=== PATIENT | male | born 1945 | race Caucasian/White ===

== ENCOUNTER 2016-10-02 07:26 | Outpatient (CLI) | payer MEDICARE, MEDICAID | END 2016-10-02 07:27 | disposition home or self-care (01) | DX: E11.9 Type 2 diabetes mellitus without complications (principal) ==

== ENCOUNTER 2018-01-15 11:18 | Outpatient (CLI) | payer MEDICARE, MEDICAID ==
[2018-01-15 18:49] LABS: BASOPHILS # (AUTO) 0.1 10^3/uL (0.0-0.1); BASOPHILS % (AUTO) 1.6 %; EOSINOPHILS # (AUTO) 0.4 10^3/uL (0.0-0.7); EOSINOPHILS % (AUTO) 5.9 %; LYMPHOCYTES # (AUTO) 2.3 10^3/uL (1.5-3.5); LYMPHOCYTES % (AUTO) 32.2 %; MEAN CORPUSCULAR HEMOGLOBIN 31.9 pg (27.0-31.0); MEAN CORPUSCULAR HGB CONC 33.9 g/dL (32.0-36.0); MEAN PLATELET VOLUME 8.5 fL (7.4-11.4); MONOCYTES # (AUTO) 0.7 10^3/uL (0.0-1.0); MONOCYTES % (AUTO) 9.9 %; NEUTROPHILS # (AUTO) 3.6 10^3/uL (1.5-6.6); NEUTROPHILS % (AUTO) 50.4 %; PLT - PLATELET COUNT 271 10^3/uL (130-450); RED BLOOD COUNT 4.71 10^6/uL (4.70-6.10); RED CELL DISTRIBUTION WIDTH 13.6 % (12.0-15.0); WHITE BLOOD COUNT 7.1 x10^3/uL (4.8-10.8)
[2018-01-15 19:25] LABS: ALBUMIN 3.9 g/dL (3.2-5.5); ALKALINE PHOSPHATASE 53 IU/L (42-121); ALT ALANINE AMINOTRANSFERASE 41 IU/L (10-60); AST ASPARTATE AMINOTRANSFERASE 30 IU/L (10-42); BILIRUBIN,TOTAL 0.7 mg/dL (0.2-1.0); BUN - BLOOD UREA NITROGEN 14 mg/dL (6-20); CALCIUM 8.9 mg/dL (8.5-10.3); CARBON DIOXIDE - CO2 23 mmol/L (21-32); CHLORIDE 105 mmol/L (101-111); CHOL/HDL RATIO 4.1 (<5.0); CHOLESTEROL 167 mg/dL; CREATININE 0.9 mg/dL (0.6-1.2); GFR - MDRD 83 (>89); GLUCOSE 139 mg/dL (70-100); HDL CHOLESTEROL 41 mg/dL; LDL CHOLESTEROL,CALCULATED 75 mg/dL; LDL/HDL RATIO 1.8 (<3.6); SODIUM 136 mmol/L (135-145); TOTAL PROTEIN 7.7 g/dL (6.7-8.2); VLDL CHOLESTEROL 51 mg/dL
[2018-01-15 19:40] LABS: HB2 TOTAL 16.2 g/dL; HEMOGLOBIN A1C 1.03 g/dL
== END 2018-01-15 11:19 | disposition home or self-care (01) ==
LOC: LAB.WCP 11:18
PROVIDERS: ATTEND Family Medicine
DX: E11.9 Type 2 diabetes mellitus without complications (principal)
CPT/HCPCS: 36415; 80053; 80061; 82043; 83036; 83721; 84443; 85025

== ENCOUNTER 2018-09-10 13:34 | Outpatient (CLI) | payer MEDICARE, MEDICAID ==
[2018-09-10 18:52] LABS: BASOPHILS # (AUTO) 0.1 10^3/uL (0.0-0.1); BASOPHILS % (AUTO) 1.8 %; EOSINOPHILS # (AUTO) 0.3 10^3/uL (0.0-0.7); EOSINOPHILS % (AUTO) 4.5 %; LYMPHOCYTES # (AUTO) 2.2 10^3/uL (1.5-3.5); LYMPHOCYTES % (AUTO) 37.7 %; MEAN CORPUSCULAR HEMOGLOBIN 31.6 pg (27.0-31.0); MEAN CORPUSCULAR HGB CONC 33.4 g/dL (32.0-36.0); MEAN CORPUSCULAR VOLUME 94.6 fL (80.0-94.0); MEAN PLATELET VOLUME 8.6 fL (7.4-11.4); MONOCYTES # (AUTO) 0.5 10^3/uL (0.0-1.0); MONOCYTES % (AUTO) 9.1 %; NEUTROPHILS # (AUTO) 2.8 10^3/uL (1.5-6.6); NEUTROPHILS % (AUTO) 46.9 %; PLT - PLATELET COUNT 242 10^3/uL (130-450); RED BLOOD COUNT 4.44 10^6/uL (4.70-6.10); WHITE BLOOD COUNT 5.9 x10^3/uL (4.8-10.8)
[2018-09-10 19:18] LABS: ALBUMIN 4.3 g/dL (3.2-5.5); ALBUMIN/GLOBULIN RATIO 1.1 (1.0-2.2); ALKALINE PHOSPHATASE 57 IU/L (42-121); ALT ALANINE AMINOTRANSFERASE 87 IU/L (10-60); AST ASPARTATE AMINOTRANSFERASE 54 IU/L (10-42); BILIRUBIN,TOTAL 0.7 mg/dL (0.2-1.0); BUN - BLOOD UREA NITROGEN 19 mg/dL (6-20); CHOL/HDL RATIO 4.4 (<5.0); CHOLESTEROL 182 mg/dL; CREATININE 1.1 mg/dL (0.6-1.2); GFR - MDRD 65 (>89); HDL CHOLESTEROL 41 mg/dL; LDL CHOLESTEROL,CALCULATED 122 mg/dL; TOTAL PROTEIN 8.1 g/dL (6.7-8.2); VLDL CHOLESTEROL 19 mg/dL
[2018-09-10 19:27] LABS: CALCIUM 9.1 mg/dL (8.5-10.3); CARBON DIOXIDE - CO2 23 mmol/L (21-32); CHLORIDE 104 mmol/L (101-111); GLUCOSE 135 mg/dL (70-100); SODIUM 136 mmol/L (135-145)
[2018-09-10 19:55] LABS: HB2 TOTAL 15.4 g/dL; HEMOGLOBIN A1C 1.21 g/dL; HEMOGLOBIN A1C % 9.3 % (4.6-6.2)
== END 2018-09-10 13:35 | disposition home or self-care (01) ==
LOC: LAB.WCP 13:34
PROVIDERS: ATTEND Family Medicine
DX: E11.9 Type 2 diabetes mellitus without complications (principal); E78.5 Hyperlipidemia, unspecified; I10 Essential (primary) hypertension
CPT/HCPCS: 36415; 80053; 80061; 83036; 83721; 85025

== ENCOUNTER 2019-09-09 10:46 | Outpatient (CLI) | payer OTHER, MEDICARE | END 2019-09-09 10:47 | disposition critical access hospital (66) | LOC: EMS 10:46 | PROVIDERS: ATTEND Surgery | DX: R07.81 Pleurodynia (principal); V43.52XA Car driver injured in collision with other type car in traffic accident, initial encounter; Y92.413 State road as the place of occurrence of the external cause | CPT/HCPCS: A0425; A0429 ==

== ENCOUNTER 2019-09-09 11:15 | Emergency (ER) | payer OTHER, MEDICARE ==
[2019-09-09] MEDS ORDERED: HYDROcod/ACETAM 5/325 MG TABLET PO STA (11:24)
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
[2019-09-09 13:08] VITALS: BP 150/85
== END 2019-09-09 13:12 | disposition home or self-care (01) ==
LOC: EDUNIT# → ED 11:15
DX: S20.211A Contusion of right front wall of thorax, initial encounter (principal); S13.9XXA Sprain of joints and ligaments of unspecified parts of neck, initial encounter; V49.49XA Driver injured in collision with other motor vehicles in traffic accident, initial encounter
CPT/HCPCS: 70450; 71250; 72125; 99283; 99284; A9270

== ENCOUNTER 2019-10-13 08:45 | Outpatient (CLI) | payer OTHER, MEDICARE ==
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
== END 2019-10-13 23:59 | disposition home or self-care (01) ==
LOC: DI.WCP 08:45
PROVIDERS: ATTEND Family Medicine
DX: M19.012 Primary osteoarthritis, left shoulder (principal)

== ENCOUNTER 2020-06-05 08:00 | Outpatient (CLI) | payer MEDICARE, OTHER ==
[2020-06-05 13:21] LABS: BASOPHILS # (AUTO) 0.1 10^3/uL (0.0-0.1); EOSINOPHILS # (AUTO) 0.4 10^3/uL (0.0-0.7); EOSINOPHILS % (AUTO) 6.6 %; HGB - HEMOGLOBIN 14.9 g/dL (14.0-18.0); LYMPHOCYTES # (AUTO) 2.8 10^3/uL (1.5-3.5); LYMPHOCYTES % (AUTO) 43.8 %; MEAN CORPUSCULAR HEMOGLOBIN 31.2 pg (27.0-31.0); MEAN CORPUSCULAR HGB CONC 33.3 g/dL (32.0-36.0); MEAN CORPUSCULAR VOLUME 93.5 fL (80.0-94.0); MEAN PLATELET VOLUME 10.4 fL (7.4-11.4); MONOCYTES # (AUTO) 0.5 10^3/uL (0.0-1.0); MONOCYTES % (AUTO) 7.3 %; NEUTROPHILS # (AUTO) 2.6 10^3/uL (1.5-6.6); PLT - PLATELET COUNT 246 10^3/uL (130-450); RED BLOOD COUNT 4.78 10^6/uL (4.70-6.10); RED CELL DISTRIBUTION WIDTH 12.3 % (12.0-15.0); WHITE BLOOD COUNT 6.4 x10^3/uL (4.8-10.8)
[2020-06-05 13:43] LABS: CREATININE,URINE 161.1 mg/dL; MICROALBUM/CREATININE RATIO,UR 6.2 ug/mg (<30.0)
[2020-06-05 14:19] LABS: ALBUMIN/GLOBULIN RATIO 1.1 (1.0-2.2); ALKALINE PHOSPHATASE 48 IU/L (42-121); ALT ALANINE AMINOTRANSFERASE 31 IU/L (10-60); AST ASPARTATE AMINOTRANSFERASE 20 IU/L (10-42); BILIRUBIN,TOTAL 0.8 mg/dL (0.2-1.0); BUN - BLOOD UREA NITROGEN 22 mg/dL (6-20); CALCIUM 9.1 mg/dL (8.5-10.3); CARBON DIOXIDE - CO2 24 mmol/L (21-32); CHLORIDE 104 mmol/L (101-111); CHOL/HDL RATIO 4.9 (<5.0); CHOLESTEROL 205 mg/dL; CREATININE 1.4 mg/dL (0.6-1.2); GLUCOSE 155 mg/dL (70-100); HDL CHOLESTEROL 42 mg/dL; LDL CHOLESTEROL,CALCULATED 140 mg/dL; LDL/HDL RATIO 3.3 (<3.6); TOTAL PROTEIN 7.8 g/dL (6.7-8.2); VLDL CHOLESTEROL 23 mg/dL
== END 2020-06-05 23:59 | disposition home or self-care (01) ==
LOC: LAB.WCP 08:00
PROVIDERS: ATTEND Family Medicine
DX: E11.9 Type 2 diabetes mellitus without complications (principal)
CPT/HCPCS: 36415; 80053; 80061; 82043; 82570; 83036; 83721; 85025

== ENCOUNTER 2020-06-26 07:00 | Outpatient (CLI) | payer MEDICARE, OTHER ==
[2020-06-26 10:52] LABS: INR 0.9 (0.8-1.2); PT - PROTHROMBIN TIME 10.6 secs (9.9-12.6)
[2020-06-26 11:21] LABS: ALBUMIN 4.3 g/dL (3.2-5.5); ALBUMIN/GLOBULIN RATIO 1.2 (1.0-2.2); BILIRUBIN,TOTAL 0.8 mg/dL (0.2-1.0); CALCIUM 9.5 mg/dL (8.5-10.3); CREATININE 1.4 mg/dL (0.6-1.2)
== END 2020-06-26 23:59 | disposition home or self-care (01) ==
LOC: LAB 07:00
PROVIDERS: ATTEND Surgery
DX: K76.9 Liver disease, unspecified (principal)
CPT/HCPCS: 36415; 80053; 85610

== ENCOUNTER 2020-07-18 07:35 | Day surgery (SDC) | payer MEDICARE, MEDICAID ==
[2020-07-18] MEDS ORDERED: LACTATED RINGERS 1,000 ML IV ONE ×2 (07:51→10:55)
--- NOTE | 2020-07-18 08:49 | ANESTHESIA ---
Pre-Anesthesia VS, & Labs - Diagnosis screening Colonoscopy - Procedure Colonoscopy Vital Signs: Temp Pulse Resp BP Pulse Ox 37.0 C 102 H 18 163/83 H 96 07/18/20 07:51 07/18/20 07:51 07/18/20 07:51 07/18/20 07:51 07/18/20 07:51 Height: 5 ft 6 in Weight (kg): 68 kg Body Mass Index: 24.2 BMI Classification: Healthy weight - Lab Results Current Lab Results: Laboratory Tests 07/18/20 08:22: POC Whole Bld Glucose 180 H Lab results reviewed: Yes Home Medications and Allergies Home Medications: Ambulatory Orders Amlodipine Besylate [Norvasc] 10 mg PO DAILY 07/14/20 Hydralazine HCl 150 mg PO DAILY 07/14/20 Metoprolol Tartrate [Lopressor] 50 mg PO BID 07/14/20 Spironolactone [Aldactone] 25 mg PO DAILY 07/14/20 Telmisartan [Micardis] 80 mg PO DAILY 07/14/20 glipiZIDE [Glipizide] 20 mg PO DAILY 07/14/20 metFORMIN [Glucophage] 500 mg PO BIDWM 07/14/20 Amlodipine Besylate [Norvasc] 10 mg PO DAILY 07/14/20 Hydralazine HCl 150 mg PO DAILY 07/14/20 Metoprolol Tartrate [Lopressor] 50 mg PO BID 07/14/20 Spironolactone [Aldactone] 25 mg PO DAILY 07/14/20 Telmisartan [Micardis] 80 mg PO DAILY 07/14/20 glipiZIDE [Glipizide] 20 mg PO DAILY 07/14/20 metFORMIN [Glucophage] 500 mg PO BIDWM 07/14/20 Allergies/Adverse Reactions: Allergies Allergy/AdvReac Type Severity Reaction Status Date / Time hydrochlorothiazide Allergy Unknown Verified 09/10/19 08:04 lisinopril Allergy Unknown Verified 09/10/19 08:04 lovastatin Allergy Unknown Verified 09/10/19 08:04 Anes History & Medical History - Anesthetic History Family history of Anesthesia Complications: Denies Family history of Malignant Hyperthermia: Denies - Medical History Cardiovascular: reports: Hypertension Pulmonary: reports: None Gastrointestinal: reports: Colon polyps, Other Urinary: reports: Benign prostate hypertrophy Neuro: reports: None Musculoskeletal: reports: None Endocrine/Autoimmune: reports: Type 2 diabetes Skin: reports: None Smoking Status: Never smoker Psychosocial: reports: No issues indicated - Surgical History General: reports: Liver surgery, Colonoscopy Eyes Ears Nose Throat (EENT): reports: Cataracts, Other Urologic: reports: Bladder surgery Results - EKG Results EKG Comparison: Unchanged from prior EKG Exam General: Alert, Oriented x3, Cooperative, No acute distress Dental: WNL Mouth Openin Fingerbreadth Neck Mobility: Normal Mallampati classification: II Thyromental Distance: 4-6 cm Respiratory: Lungs clear, Normal breath sounds Cardiovascular: Regular rate, No murmurs Plan Anesthesia Type: General Consent for Procedure(s) Verified and Reviewed: Yes Code Status: Attempt Resuscitation ASA classification: 2-Mild systemic disease Is this case an emergency?: No
[2020-07-18] MEDS ORDERED: LIDOCAINE-MPF 2% 5 ML VIAL ONE (10:25)
[2020-07-18] MEDS ORDERED: PROPOFOL 200 MG/20 ML VIAL IVP ONE ×2 (10:25→10:40)
[2020-07-18 10:57] VITALS: BP 134/79
--- NOTE | 2020-07-18 12:17 | ANESTHESIA POST OP EVALUATION ---
Anesthesia Post Eval - Post Anesthesia Eval Vitals: Last Vital Signs Temp 36.4 C L 07/18/20 10:56 Pulse 85 07/18/20 10:56 Resp 16 07/18/20 10:56 BP 134/79 H 07/18/20 10:56 Pulse Ox 99 07/18/20 10:56 CV Function Including HR & BP: positive: Stable Pain Control: positive: Satisfactory Nausea & Vomiting: positive: Negative Mental Status: positive: Patient Participates Respiratory Status: Airway Patent Hydration Status: Satisfactory Anesthesia Complications: positive: None
== END 2020-07-18 07:36 | disposition home or self-care (01) ==
LOC: SDS 07:35
PROVIDERS: ATTEND Surgery
DX: Z12.11 Encounter for screening for malignant neoplasm of colon (principal); K57.30 Diverticulosis of large intestine without perforation or abscess without bleeding; K64.8 Other hemorrhoids; I10 Essential (primary) hypertension; E11.9 Type 2 diabetes mellitus without complications; N40.0 Benign prostatic hyperplasia without lower urinary tract symptoms; Z86.010 Personal history of colon polyps; Z87.891 Personal history of nicotine dependence; Z79.84 Long term (current) use of oral hypoglycemic drugs; Z86.59 Personal history of other mental and behavioral disorders
CPT/HCPCS: G0105; J7120

== ENCOUNTER 2020-09-11 08:35 | Outpatient (CLI) | payer MEDICARE, MEDICAID ==
[2020-09-11 13:48] LABS: BASOPHILS # (AUTO) 0.1 10^3/uL (0.0-0.1); BASOPHILS % (AUTO) 1.4 %; EOSINOPHILS # (AUTO) 0.6 10^3/uL (0.0-0.7); EOSINOPHILS % (AUTO) 8.8 %; HCT - HEMATOCRIT 42.8 % (42.0-52.0); HGB - HEMOGLOBIN 14.3 g/dL (14.0-18.0); LYMPHOCYTES # (AUTO) 2.2 10^3/uL (1.5-3.5); LYMPHOCYTES % (AUTO) 33.3 %; MEAN CORPUSCULAR HEMOGLOBIN 31.8 pg (27.0-31.0); MEAN CORPUSCULAR HGB CONC 33.4 g/dL (32.0-36.0); MEAN CORPUSCULAR VOLUME 95.3 fL (80.0-94.0); MEAN PLATELET VOLUME 10.1 fL (7.4-11.4); MONOCYTES # (AUTO) 0.5 10^3/uL (0.0-1.0); MONOCYTES % (AUTO) 8.2 %; NEUTROPHILS # (AUTO) 3.1 10^3/uL (1.5-6.6); NEUTROPHILS % (AUTO) 48.1 %; PLT - PLATELET COUNT 225 10^3/uL (130-450); RED BLOOD COUNT 4.49 10^6/uL (4.70-6.10); RED CELL DISTRIBUTION WIDTH 12.5 % (12.0-15.0); WHITE BLOOD COUNT 6.5 x10^3/uL (4.8-10.8)
[2020-09-11 13:49] LABS: BILIRUBIN,URINE NEGATIVE (NEGATIVE); GLUCOSE, URINE (UA) 500 mg/dL (NEGATIVE); KETONES,URINE (UA) NEGATIVE (NEGATIVE); LEUKOCYTE ESTERASE, URINE NEGATIVE (NEGATIVE); NITRITE,URINE NEGATIVE (NEGATIVE); OCCULT BLOOD,URINE NEGATIVE (NEGATIVE); PROTEIN,URINE NEGATIVE (NEGATIVE); UROBILINOGEN,URINE 0.2 (NORMAL) E.U./dL (NORMAL)
[2020-09-11 14:06] LABS: BACTERIA,URINE None Seen /HPF (None Seen); CLARITY,URINE CLEAR (CLEAR); RBC,URINE None Seen /HPF (0-5); SQUAMOUS EPITHELIAL CELL,UR NONE SEEN (<= Few); WBC,URINE 0-3 /HPF (0-3)
[2020-09-11 14:14] LABS: ALBUMIN 4.3 g/dL (3.2-5.5); ALBUMIN/GLOBULIN RATIO 1.2 (1.0-2.2); ALKALINE PHOSPHATASE 43 IU/L (42-121); ALT ALANINE AMINOTRANSFERASE 28 IU/L (10-60); AST ASPARTATE AMINOTRANSFERASE 19 IU/L (10-42); BILIRUBIN,TOTAL 0.7 mg/dL (0.2-1.0); BUN - BLOOD UREA NITROGEN 18 mg/dL (6-20); CALCIUM 9.5 mg/dL (8.5-10.3); CARBON DIOXIDE - CO2 26 mmol/L (21-32); CHLORIDE 105 mmol/L (101-111); CHOL/HDL RATIO 4.4 (<5.0); CHOLESTEROL 205 mg/dL; CREATININE 1.1 mg/dL (0.6-1.2); GFR - MDRD 65 (>89); GLUCOSE 185 mg/dL (70-100); HDL CHOLESTEROL 47 mg/dL; LDL CHOLESTEROL,CALCULATED 131 mg/dL; LDL/HDL RATIO 2.8 (<3.6); POTASSIUM 4.1 mmol/L (3.5-5.0); SODIUM 139 mmol/L (135-145); TOTAL PROTEIN 7.8 g/dL (6.7-8.2); TRIGLYCERIDES 134 mg/dL; VLDL CHOLESTEROL 27 mg/dL
[2020-09-11 14:33] LABS: ESTIMATED AVERAGE GLUCOSE 157 mg/dL (70-100); HEMOGLOBIN A1c% 7.1 % (4.27-6.07)
== END 2020-09-11 23:59 | disposition home or self-care (01) ==
LOC: LAB.WCP 08:35
PROVIDERS: ATTEND Family Medicine
DX: E11.22 Type 2 diabetes mellitus with diabetic chronic kidney disease (principal); N18.30 Chronic kidney disease, stage 3 unspecified
CPT/HCPCS: 36415; 80053; 80061; 81001; 83036; 83721; 85025

== ENCOUNTER 2020-11-09 11:36 | Outpatient (CLI) | payer MEDICARE, MEDICAID ==
--- NOTE | 2020-11-09 17:28 | XRAY Report ---
PROCEDURE: Cervical Spine 2 View INDICATIONS: NECK AND BACK PAIN TECHNIQUE: 3 view(s) of the cervical spine were acquired. COMPARISON: None. FINDINGS: Bones: No fractures or dislocations to the T1 level. The lateral masses of C1 appear intact on the odontoid view. No suspicious bony lesions. Moderate cervical spondylosis centered at C4-C6 with anterior osteophytes and posterior lateral uncov ertebral joint hypertrophy. There is an element of cervical facet arthropathy as well. Soft tissues: No prevertebral soft tissue swelling. IMPRESSION: Cervical spondylitic change. Reviewed by: Asad Miller MD on 11/09/2020 4:27 PM MATTY Approved by: Asad Miller MD on 11/09/2020 4:27 PM MATTY Station ID: [id number]
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
== END 2020-11-09 23:59 | disposition home or self-care (01) ==
LOC: DI.N 11:36
PROVIDERS: ATTEND Family Medicine
DX: M47.812 Spondylosis without myelopathy or radiculopathy, cervical region (principal); M54.2 Cervicalgia; M54.9 Dorsalgia, unspecified

== ENCOUNTER 2021-03-13 10:07 | Outpatient (CLI) | payer MEDICARE, MEDICAID ==
[2021-03-13 11:31] LABS: BASOPHILS # (AUTO) 0.1 10^3/uL (0.0-0.1); BASOPHILS % (AUTO) 1.5 %; EOSINOPHILS # (AUTO) 0.4 10^3/uL (0.0-0.7); EOSINOPHILS % (AUTO) 6.7 %; HCT - HEMATOCRIT 43.1 % (42.0-52.0); HGB - HEMOGLOBIN 14.5 g/dL (14.0-18.0); LYMPHOCYTES # (AUTO) 1.6 10^3/uL (1.5-3.5); LYMPHOCYTES % (AUTO) 26.6 %; MEAN CORPUSCULAR HEMOGLOBIN 31.7 pg (27.0-31.0); MEAN CORPUSCULAR HGB CONC 33.6 g/dL (32.0-36.0); MEAN CORPUSCULAR VOLUME 94.3 fL (80.0-94.0); MEAN PLATELET VOLUME 10.2 fL (7.4-11.4); MONOCYTES # (AUTO) 0.5 10^3/uL (0.0-1.0); MONOCYTES % (AUTO) 8.1 %; NEUTROPHILS # (AUTO) 3.5 10^3/uL (1.5-6.6); NEUTROPHILS % (AUTO) 56.9 %; PLT - PLATELET COUNT 218 10^3/uL (130-450); RED BLOOD COUNT 4.57 10^6/uL (4.70-6.10); RED CELL DISTRIBUTION WIDTH 12.2 % (12.0-15.0); WHITE BLOOD COUNT 6.1 x10^3/uL (4.8-10.8)
[2021-03-13 12:00] LABS: ESTIMATED AVERAGE GLUCOSE 186 mg/dL (70-100); HEMOGLOBIN A1c% 8.1 % (4.27-6.07)
[2021-03-13 12:04] LABS: ALBUMIN/GLOBULIN RATIO 1.1 (1.0-2.2); ALKALINE PHOSPHATASE 58 IU/L (42-121); ALT ALANINE AMINOTRANSFERASE 33 IU/L (10-60); AST ASPARTATE AMINOTRANSFERASE 19 IU/L (10-42); BILIRUBIN,TOTAL 0.9 mg/dL (0.2-1.0); BUN - BLOOD UREA NITROGEN 21 mg/dL (6-20); CALCIUM 9.4 mg/dL (8.5-10.3); CARBON DIOXIDE - CO2 27 mmol/L (21-32); CHLORIDE 104 mmol/L (101-111); CHOL/HDL RATIO 5.2 (<5.0); CHOLESTEROL 209 mg/dL; CREATININE 1.2 mg/dL (0.6-1.2); GFR - MDRD 59 (>89); GLUCOSE 216 mg/dL (70-100); HDL CHOLESTEROL 40 mg/dL; LDL CHOLESTEROL,CALCULATED 131 mg/dL; LDL/HDL RATIO 3.3 (<3.6); POTASSIUM 3.8 mmol/L (3.5-5.0); SODIUM 139 mmol/L (135-145); TOTAL PROTEIN 7.7 g/dL (6.7-8.2); TRIGLYCERIDES 192 mg/dL; VLDL CHOLESTEROL 38 mg/dL
== END 2021-03-13 23:59 | disposition home or self-care (01) ==
LOC: LAB.WCP 10:07
PROVIDERS: ATTEND Family Medicine
DX: E11.9 Type 2 diabetes mellitus without complications (principal)
CPT/HCPCS: 36415; 80053; 80061; 83036; 83721; 85025

== ENCOUNTER 2021-09-05 09:35 | Outpatient (CLI) | payer MEDICARE, MEDICAID ==
[2021-09-05 12:12] LABS: CREATININE,URINE 113.6 mg/dL; MICROALBUM/CREATININE RATIO,UR 80.1 ug/mg (<30.0); MICROALBUMIN,URINE 9.1 mg/dL (0-300.0)
[2021-09-05 12:19] LABS: BASOPHILS # (AUTO) 0.1 10^3/uL (0.0-0.1); BASOPHILS % (AUTO) 1.6 %; EOSINOPHILS # (AUTO) 0.2 10^3/uL (0.0-0.7); EOSINOPHILS % (AUTO) 4.7 %; HCT - HEMATOCRIT 43.3 % (42.0-52.0); HGB - HEMOGLOBIN 14.7 g/dL (14.0-18.0); LYMPHOCYTES # (AUTO) 1.4 10^3/uL (1.5-3.5); LYMPHOCYTES % (AUTO) 27.8 %; MEAN CORPUSCULAR HEMOGLOBIN 31.4 pg (27.0-31.0); MEAN CORPUSCULAR HGB CONC 33.9 g/dL (32.0-36.0); MEAN CORPUSCULAR VOLUME 92.5 fL (80.0-94.0); MEAN PLATELET VOLUME 10.5 fL (7.4-11.4); MONOCYTES # (AUTO) 0.5 10^3/uL (0.0-1.0); MONOCYTES % (AUTO) 9.5 %; NEUTROPHILS # (AUTO) 2.9 10^3/uL (1.5-6.6); NEUTROPHILS % (AUTO) 56.2 %; PLT - PLATELET COUNT 209 10^3/uL (130-450); RED BLOOD COUNT 4.68 10^6/uL (4.70-6.10); RED CELL DISTRIBUTION WIDTH 12.2 % (12.0-15.0); WHITE BLOOD COUNT 5.1 x10^3/uL (4.8-10.8)
[2021-09-05 12:35] LABS: ALBUMIN/GLOBULIN RATIO 1.1 (1.0-2.2); ALKALINE PHOSPHATASE 54 IU/L (42-121); ALT ALANINE AMINOTRANSFERASE 37 IU/L (10-60); AST ASPARTATE AMINOTRANSFERASE 20 IU/L (10-42); BILIRUBIN,TOTAL 0.8 mg/dL (0.2-1.0); BUN - BLOOD UREA NITROGEN 19 mg/dL (6-20); CALCIUM 9.3 mg/dL (8.5-10.3); CARBON DIOXIDE - CO2 27 mmol/L (21-32); CHLORIDE 99 mmol/L (101-111); CHOLESTEROL 193 mg/dL; CREATININE 1.3 mg/dL (0.6-1.2); GFR - MDRD 54 (>89); GLUCOSE 251 mg/dL (70-100); HDL CHOLESTEROL 48 mg/dL; LDL CHOLESTEROL,CALCULATED 115 mg/dL; LDL/HDL RATIO 2.4 (<3.6); POTASSIUM 3.8 mmol/L (3.5-5.0); SODIUM 136 mmol/L (135-145); TOTAL PROTEIN 7.8 g/dL (6.7-8.2); TRIGLYCERIDES 151 mg/dL; VLDL CHOLESTEROL 30 mg/dL
== END 2021-09-05 09:36 | disposition home or self-care (01) ==
LOC: LAB.N 09:35
PROVIDERS: ATTEND Physician Assistant
DX: E11.9 Type 2 diabetes mellitus without complications (principal)
CPT/HCPCS: 36415; 80053; 80061; 81599; 82043; 82570; 83036; 83721; 85025

== ENCOUNTER 2022-04-26 13:18 | Outpatient (CLI) | payer MEDICARE, MEDICAID ==
[2022-04-26 18:07] LABS: BILIRUBIN,URINE NEGATIVE (NEGATIVE); CLARITY,URINE CLEAR (CLEAR); GLUCOSE, URINE (UA) >=1000 mg/dL (NEGATIVE); KETONES,URINE (UA) NEGATIVE (NEGATIVE); LEUKOCYTE ESTERASE, URINE NEGATIVE (NEGATIVE); NITRITE,URINE NEGATIVE (NEGATIVE); OCCULT BLOOD,URINE NEGATIVE (NEGATIVE); PROTEIN,URINE NEGATIVE (NEGATIVE); UROBILINOGEN,URINE 0.2 (NORMAL) E.U./dL (NORMAL)
[2022-04-26 18:27] LABS: CREATININE,URINE 70.4 mg/dL; MICROALBUM/CREATININE RATIO,UR 8.5 ug/mg (<30.0); MICROALBUMIN,URINE 0.6 mg/dL (0-300.0)
[2022-04-26 18:39] LABS: ALBUMIN 4.1 g/dL (3.2-5.5); CALCIUM 8.8 mg/dL (8.5-10.3); CREATININE 1.3 mg/dL (0.6-1.2); PHOSPHORUS 2.5 mg/dL (2.5-4.6)
[2022-04-26 20:48] LABS: ESTIMATED AVERAGE GLUCOSE 148 mg/dL (70-100); HEMOGLOBIN A1c% 6.8 % (4.27-6.07)
== END 2022-04-26 13:19 | disposition home or self-care (01) ==
LOC: LAB.N 13:18
PROVIDERS: ATTEND Physician Assistant
DX: I12.9 Hypertensive chronic kidney disease with stage 1 through stage 4 chronic kidney disease, or unspecified chronic kidney disease (principal); E11.22 Type 2 diabetes mellitus with diabetic chronic kidney disease; N18.31 Chronic kidney disease, stage 3a
CPT/HCPCS: 36415; 80069; 81001; 81003; 82043; 82088; 82570; 83036; 84244; 87086

== ENCOUNTER 2022-05-14 07:24 | Outpatient (CLI) | payer MEDICARE, MEDICAID | END 2022-05-14 07:25 | disposition home or self-care (01) | LOC: LAB.N 07:24 | PROVIDERS: ATTEND Internal Medicine Nephrology | DX: I10 Essential (primary) hypertension (principal) | CPT/HCPCS: 84244 ==

== ENCOUNTER 2022-08-13 15:25 | Outpatient (CLI) | payer MEDICARE, MEDICAID ==
--- NOTE | 2022-08-13 16:35 | Ultrasound Report ---
PROCEDURE: Retroperitoneal INDICATIONS: CHRONIC KIDNEY DISEASE STAGE 3A TECHNIQUE: Real-time scanning was performed of the retroperitoneal organs, with image documentation. COMPARISON: None. FINDINGS: Kidneys: . Right kidney measures 12.2 cm long; left kidney measures 8.8 cm long. Right renal corti steve thickness is 1.9 cm; left renal cortical thickness is 1.8 cm. No solid masses, hydronephrosis, o r nephrolithiasis. Bladder: Pre-void bladder volume is 118 mL. Post-void residual is 36 mL. Pre-void images demonstra te no intraluminal masses or stones. On pre-void images, bilateral ureteral jets are noted with colo r Doppler interrogation. (Of note, ureteral jets may not be detectable in up to 25% of cases due to insufficient differences in specific gravity between ureteral and bladder urine). Miscellaneous: No free abdominal fluid. IMPRESSION: Small postvoid residual. Asymmetric left renal atrophy. Reviewed by: Kourtney Cooley MD on 08/13/2022 4:33 PM PDT Approved by: Kourtney Cooley MD on 08/13/2022 4:33 PM PDT Station ID: [id number]
== END 2022-08-13 15:26 | disposition home or self-care (01) ==
LOC: DI 15:25
PROVIDERS: ATTEND Physician Assistant
DX: N18.31 Chronic kidney disease, stage 3a (principal); N26.1 Atrophy of kidney (terminal)

== ENCOUNTER 2023-01-09 09:05 | Outpatient (CLI) | payer OTHER, MEDICAID, MEDICARE | END 2023-01-09 23:59 | disposition critical access hospital (66) | LOC: EMS 09:05 | DX: S80.812A Abrasion, left lower leg, initial encounter (principal); V89.0XXA Person injured in unspecified motor-vehicle accident, nontraffic, initial encounter; Y93.89 Activity, other specified; Y92.89 Other specified places as the place of occurrence of the external cause; R07.9 Chest pain, unspecified | CPT/HCPCS: A0425; A0429 ==

== ENCOUNTER 2023-01-09 09:13 | Emergency (ER) | payer OTHER, MEDICARE, MEDICAID ==
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
[2023-01-09 10:00] VITALS: BP 134/59; O2SAT 97
== END 2023-01-09 10:02 | disposition home or self-care (01) ==
LOC: EDUNIT# → ED 09:13
DX: S20.211A Contusion of right front wall of thorax, initial encounter (principal); S80.12XA Contusion of left lower leg, initial encounter; V89.2XXA Person injured in unspecified motor-vehicle accident, traffic, initial encounter; Y92.410 Unspecified street and highway as the place of occurrence of the external cause; I10 Essential (primary) hypertension; E11.9 Type 2 diabetes mellitus without complications; Z79.899 Other long term (current) drug therapy; Z79.84 Long term (current) use of oral hypoglycemic drugs
CPT/HCPCS: 99281; 99283

== ENCOUNTER 2023-01-17 09:26 | Outpatient (CLI) | payer MEDICARE, MEDICAID, OTHER ==
[2023-01-17 13:05] LABS: ALBUMIN 4.1 g/dL (3.2-5.5); CREATININE 1.1 mg/dL (0.6-1.3); MAGNESIUM 2.1 mg/dL (1.7-2.3); PHOSPHORUS 2.9 mg/dL (2.5-5.0); POTASSIUM 4.1 mmol/L (3.5-4.5); URIC ACID 5.7 mg/dL (4.4-7.6)
[2023-01-17 13:19] LABS: CREATININE,URINE 82.1 mg/dL; MICROALBUM/CREATININE RATIO,UR 13.4 ug/mg (<30.0); MICROALBUMIN,URINE 1.1 mg/dL
== END 2023-01-17 09:27 | disposition home or self-care (01) ==
LOC: LAB.N 09:26
PROVIDERS: ATTEND Internal Medicine Nephrology
DX: N18.31 Chronic kidney disease, stage 3a (principal)
CPT/HCPCS: 36415; 80048; 82040; 82043; 82306; 82570; 83735; 83970; 84100; 84550

== ENCOUNTER 2023-02-03 07:10 | Outpatient (CLI) | payer MEDICARE, MEDICAID ==
[2023-02-03 12:34] LABS: BASOPHILS # (AUTO) 0.1 10^3/uL (0.0-0.1); BASOPHILS % (AUTO) 1.3 %; EOSINOPHILS # (AUTO) 0.4 10^3/uL (0.0-0.7); EOSINOPHILS % (AUTO) 6.2 %; HCT - HEMATOCRIT 43.5 % (42.0-52.0); HGB - HEMOGLOBIN 14.5 g/dL (14.0-18.0); LYMPHOCYTES # (AUTO) 2.5 10^3/uL (1.5-3.5); LYMPHOCYTES % (AUTO) 40.3 %; MEAN CORPUSCULAR HEMOGLOBIN 31.5 pg (27.0-31.0); MEAN CORPUSCULAR HGB CONC 33.3 g/dL (32.0-36.0); MEAN CORPUSCULAR VOLUME 94.6 fL (80.0-94.0); MEAN PLATELET VOLUME 10.3 fL (7.4-11.4); MONOCYTES # (AUTO) 0.6 10^3/uL (0.0-1.0); MONOCYTES % (AUTO) 9.2 %; NEUTROPHILS # (AUTO) 2.7 10^3/uL (1.5-6.6); NEUTROPHILS % (AUTO) 42.8 %; PLT - PLATELET COUNT 206 10^3/uL (130-450); RED CELL DISTRIBUTION WIDTH 12.6 % (12.0-15.0); WHITE BLOOD COUNT 6.3 x10^3/uL (4.8-10.8)
[2023-02-03 12:54] LABS: ALBUMIN 4.2 g/dL (3.2-5.5); ALBUMIN/GLOBULIN RATIO 1.2 (1.0-2.2); ALKALINE PHOSPHATASE 57 IU/L (42-121); ALT ALANINE AMINOTRANSFERASE 14 IU/L (10-60); AST ASPARTATE AMINOTRANSFERASE 12 IU/L (10-42); BILIRUBIN,TOTAL 0.7 mg/dL (0.2-1.0); BUN - BLOOD UREA NITROGEN 16 mg/dL (6-20); CALCIUM 9.3 mg/dL (8.5-10.3); CARBON DIOXIDE - CO2 27 mmol/L (21-32); CHLORIDE 108 mmol/L (101-111); CHOLESTEROL 169 mg/dL; CREATININE 1.2 mg/dL (0.6-1.3); GFR - MDRD 59 (>89); GLUCOSE 107 mg/dL (74-104); HDL CHOLESTEROL 42 mg/dL; LDL CHOLESTEROL,CALCULATED 96 mg/dL; LDL/HDL RATIO 2.3 (<3.6); POTASSIUM 3.6 mmol/L (3.5-4.5); SODIUM 142 mmol/L (135-145); TOTAL PROTEIN 7.6 g/dL (6.4-8.9); TRIGLYCERIDES 155 mg/dL (48-352); VLDL CHOLESTEROL 31 mg/dL
[2023-02-03 14:06] LABS: ESTIMATED AVERAGE GLUCOSE 128 mg/dL (70-100); HEMOGLOBIN A1c% 6.1 % (4.27-6.07)
== END 2023-02-03 07:11 | disposition home or self-care (01) ==
LOC: LAB.N 07:10
PROVIDERS: ATTEND Internal Medicine Nephrology
DX: I12.9 Hypertensive chronic kidney disease with stage 1 through stage 4 chronic kidney disease, or unspecified chronic kidney disease (principal); E11.22 Type 2 diabetes mellitus with diabetic chronic kidney disease; N18.31 Chronic kidney disease, stage 3a; E78.5 Hyperlipidemia, unspecified
CPT/HCPCS: 36415; 80053; 80061; 83036; 83721; 85025

== ENCOUNTER 2023-10-07 07:14 | Outpatient (CLI) | payer MEDICARE, MEDICAID ==
[2023-10-07 13:04] LABS: ESTIMATED AVERAGE GLUCOSE 143 mg/dL (70-100); HEMOGLOBIN A1c% 6.6 % (4.27-6.07)
[2023-10-07 13:14] LABS: CALCIUM 9.4 mg/dL (8.5-10.3); CREATININE 1.5 mg/dL (0.6-1.3)
== END 2023-10-07 07:15 | disposition home or self-care (01) ==
LOC: LAB.N 07:14
PROVIDERS: ATTEND Physician Assistant
DX: E11.9 Type 2 diabetes mellitus without complications (principal)
CPT/HCPCS: 36415; 80048; 83036

== ENCOUNTER 2023-10-07 07:17 | Outpatient (CLI) | payer MEDICARE, MEDICAID | END 2023-10-07 07:18 | disposition home or self-care (01) | LOC: DI.N 07:17 | PROVIDERS: ATTEND Physician Assistant | DX: Z53.9 Procedure and treatment not carried out, unspecified reason (principal) ==

== ENCOUNTER 2024-01-21 07:05 | Outpatient (CLI) | payer MEDICARE, MEDICAID | END 2024-01-21 07:06 | disposition home or self-care (01) | LOC: LAB.N 07:05 | PROVIDERS: ATTEND Internal Medicine Nephrology | DX: N18.31 Chronic kidney disease, stage 3a (principal) | CPT/HCPCS: 36415; 82040 ==

== ENCOUNTER 2025-03-12 19:18 | Inpatient (IN) ==
--- OUTSIDE RECORDS SUMMARY | 2025-03-12 19:46 | EXTERNAL MEDICAL SUMMARY RPT | Continuity of Care Document ---
Author Organization [facility] Address [address] [id number] Phone Problems date description facility 2024-12-13 07:21 Chronic kidney disease, stage 3 a [facility] 2024-12-13 12:52 Chronic kidney disease, stage 3 a [facility] 2024-12-14 00:04 Chronic kidney disease, stage 3 a [facility] 2024-12-15 14:32 Hydronephrosis with ureteral stricture, not elsewhere classified [facility] 2024-12-15 14:32 Chronic kidney disease, stage 3 a [facility] 2025-01-27 00:04 Type 2 diabetes mellitus with h yperglycemia [facility] 2025-01-27 00:04 Type 2 diabetes mellitus withou t complications [facility] 2025-01-28 13:19 Type 2 diabetes mellitus with h yperglycemia [facility] 2025-02-02 17:03 Type 2 diabetes mellitus withou t complications [facility] 2025-02-03 00:02 Nutritional anemia, unspecified [facility] 2025-02-03 00:02 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 [facility] 2025-02-03 00:02 Type 2 diabetes mellitus withou t complications [facility] 2025-02-03 00:02 Hyperlipidemia, unspecified [facility] 2025-02-03 00:02 Essential (primary) hypertensio n [facility] 2025-02-03 00:02 Chronic kidney disease, stage 2 (mild) [facility] 2025-02-03 00:02 Chronic kidney disease, stage 3 unspecified [facility] 2025-03-09 07:03 Hypokalemia [facility] 2025-03-10 00:04 Hypokalemia [facility] 2025-03-10 07:39 Chronic kidney disease, stage 3 a [facility] 2025-03-10 10:33 Hypokalemia [facility] Results/Labs test date facility value unit notes Result panel 1 CREATININE 2024-12-13 08:06 [facility] 1.4 mg/dl As of November 2022 testing method has changed, this may include reference ranges. CHLORIDE 2024-12-13 08:06 [facility] 101 mmol/l As of November 2022 testing method has changed, this may include reference ranges. SODIUM 2024-12-13 08:06 [facility] 139 mmol/l (missing) GLUCOSE 2024-12-13 08:06 [facility] 144 mg/dl As of November 2022 testing method has changed, this may include reference ranges. BUN - BLOOD UREA NITROGEN 2024-12-13 08:06 [facility] 26 mg/dl As of Nov testing method has changed, this may include reference ranges. POTASSIUM 2024-12-13 08:06 [facility] 3.3 mmol/l As of November 2022 testing method has changed, this may include reference ranges. CARBON DIOXIDE - CO2 2024-12-13 08:06 [facility] 30 mmol/l As of Nov testing method has changed, this may include reference ranges. ALBUMIN 2024-12-13 08:06 [facility] 4.3 g/dl As of November 2022 testing method has changed, this may include reference ranges. GFR - MDRD 2024-12-13 08:06 [facility] 49 (missin g) The IDMS-traceable MDRD Study Equation has been validated extensively in and populations between the ages of 18 and 70 with impaired kidney function (eGFR < 60 mL/min/1.73m2) and has shown good performance for patients with all common causes of kidney disease. Although this equation has not been validated for patients older than 70, an MDRD-derived eGFR may still be a useful tool for providers caring for patients older than 70. References: http://www.nkdep.nih .gov/lab-evaluation/ gfr/creatinine-stand ardization, last updated July 2011. ANION GAP 2024-12-13 08:06 [facility] 8.0 (missing ) (missing) CALCIUM 2024-12-13 08:06 [facility] 9.6 mg/dl As of November 2022 testing method has changed, this may include reference ranges. Result panel 2 MICROALBUMIN,URINE 2024-12-13 08:08 [facility] 0.7 mg/dl [place] [employer] Definition of Moderately increased urine albumin Spot collection Urine 24-h collection Timed collection (g/mg Volume (mg/24h) (g/min) creatinine) ======= Normal < 30 < 20 < 30 Moderately 30 - 299 20 - 199 30 - 299 increased Clinical >= 300 >= 200 >= 300 albuminuria Reference Intervals shown above were taken from the literature. As of November 2022 testing method has changed, this may include reference ranges. CREATININE,URINE 2024-12-13 08:08 [facility] 134.9 mg/dl As of November 2022 testing method has changed, this may include reference ranges. MICROALBUM/CREATININE RATIO,UR 2024-12-13 08:08 [facility] 5.2 ug/mg (missing) Result panel 3 NUCLEATED RED BLOOD CELLS AUTO 2025-01-26 07:10 [facility] 0.0 /100wbc (missing) NRBC ABSOLUTE COUNT (AUTO) 2025-01-26 07:10 [facility] 0.00 x10 3/ul (missing) BASOPHILS # (AUTO) 2025-01-26 07:10 [facility] 0.1 10 3/ul (missing) EOSINOPHILS # (AUTO) 2025-01-26 07:10 [facility] 0.3 10 3/ul (missing) MONOCYTES # (AUTO) 2025-01-26 07:10 [facility] 0.5 10 3/ul (missing) BILIRUBIN,TOTAL 2025-01-26 07:10 [facility] 0.6 mg/dl As of November 2022 testing method has changed, this may include reference ranges. ALBUMIN/GLOBULIN RATIO 2025-01-26 07:10 [facility] 1.2 (missing) (missing) CREATININE 2025-01-26 07:10 [facility] 1.3 mg/dl As of November 2022 testing method has changed, this may include reference ranges. MEAN PLATELET VOLUME 2025-01-26 07:10 [facility] 10.8 fl (missing) CHLORIDE 2025-01-26 07:10 [facility] 102 mmol/l As of November 2022 testing method has changed, this may include reference ranges. RED CELL DISTRIBUTION WIDTH 2025-01-26 07:10 [facility] 12.3 % (missing) HGB - HEMOGLOBIN 2025-01-26 07:10 [facility] 13.7 g/dl (missing) TRIGLYCERIDES 2025-01-26 07:10 [facility] 131 mg/dl Unknown Triglyceride Risk Classification <150 mg/dL Normal 150-199 mg/dL Borderline High 200-499 mg/dL High >500 mg/dL Very High As of November 2022 testing method has changed, this may include reference ranges. SODIUM 2025-01-26 07:10 [facility] 139 mmol/l Unknown ESTIMATED AVERAGE GLUCOSE 2025-01-26 07:10 [facility] 151 mg/dl (missing) GLUCOSE 2025-01-26 07:10 [facility] 155 mg/dl As of November 2022 testing method has changed, this may include reference ranges. CHOLESTEROL 2025-01-26 07:10 [facility] 159 mg/dl Total Cholesterol Risk Classification Cholesterol Level Risk Classification <200 mg/dL Desirable 200-239 mg/dL Borderline High >240 mg/dL High As of November 2022 testing method has changed, this may include reference ranges. AST ASPARTATE AMINOTRANSFERASE 2025-01-26 07:10 [facility] 17 iu/l As of November 2022 testing method has changed, this may include reference ranges. LYMPHOCYTES # (AUTO) 2025-01-26 07:10 [facility] 2.1 10 3/ul (missing) LDL/HDL RATIO 2025-01-26 07:10 [facility] 2.2 (missing) (missing) ALT ALANINE AMINOTRANSFERASE 2025-01-26 07:10 [facility] 20 iu/l As of November 2022 testing method has changed, this may include reference ranges. PLT - PLATELET COUNT 2025-01-26 07:10 [facility] 210 10 3/ul (missing) BUN - BLOOD UREA NITROGEN 2025-01-26 07:10 [facility] 23 mg/dl As of November 2022 testing method has changed, this may include reference ranges. VLDL CHOLESTEROL 2025-01-26 07:10 [facility] 26 mg/dl (missing) NEUTROPHILS # (AUTO) 2025-01-26 07:10 [facility] 3.1 10 3/ul (missing) GLOBULIN 2025-01-26 07:10 [facility] 3.3 g/dl (missing) POTASSIUM 2025-01-26 07:10 [facility] 3.3 mmol/l As of November 2022 testing method has changed, this may include reference ranges. CHOL/HDL RATIO 2025-01-26 07:10 [facility] 3.9 (missing) NATIONAL CHOLESTEROL GUIDELINE [facility] ([facility]) guidelines for classificaton, testing and management of cholesterol levels in adults over 20 years of age. This new classification creates three categories of risk for coronary heart disease, regardless of age or sex, according to total amd LDL cholesterols levels: Based on total cholesterol level Desirable <200 mg/dl Borderline-high 200-239 mg/dl High >=240 mg/dl Based on cholesterol ratio CHD RISK CHOL/HDL RATIO --- MALE FEMALE 0.5 x Average 3.4 3.3 1.0 x Average 5.0 4.4 2.0 x Average 9.6 7.1 3.0 x Average 13.5 11.0 CARBON DIOXIDE - CO2 2025-01-26 07:10 [facility] 31 mmol/l As of November 2022 testing method has changed, this may include reference ranges. MEAN CORPUSCULAR HEMOGLOBIN 2025-01-26 07:10 [facility] 32.2 pg (missing) MEAN CORPUSCULAR HGB CONC 2025-01-26 07:10 [facility] 33.8 g/dl (missing) ALBUMIN 2025-01-26 07:10 [facility] 4.1 g/dl As of November 2022 testing method has changed, this may include reference ranges. RED BLOOD COUNT 2025-01-26 07:10 [facility] 4.25 10 6/ul (missing) HCT - HEMATOCRIT 2025-01-26 07:10 [facility] 40.5 % (missing) HDL CHOLESTEROL 2025-01-26 07:10 [facility] 41 mg/dl Coronary Heart Disease Risk Classification HDL Level Risk factor < 40 mg/dL major risk > 60 mg/dL negative risk As of November 2022 testing method has changed, this may include reference ranges. ALKALINE PHOSPHATASE 2025-01-26 07:10 [facility] 44 iu/l As of November 2022 testing method has changed, this may include reference ranges. GFR - MDRD 2025-01-26 07:10 [facility] 53 (missing) The IDMS-traceable MDRD Study Equation has been validated extensively in and populations between the ages of 18 and 70 with impaired kidney function (eGFR < 60 mL/min/1.73m2) and has shown good performance for patients with all common causes of kidney disease. Although this equation has not been validated for patients older than 70, an MDRD-derived eGFR may still be a useful tool for providers caring for patients older than 70. References: http://www.nkdep.ni h.gov/lab-evaluatio n/gfr/creatinine-st and ardization, last updated July 2011. ANION GAP 2025-01-26 07:10 [facility] 6.0 (missing) (missing) WHITE BLOOD COUNT 2025-01-26 07:10 [facility] 6.2 x10 3/ul (missing) HEMOGLOBIN A1c% 2025-01-26 07:10 [facility] 6.9 % The [place] Diabetes Association (ADA) has made the following recommendations: Monitoring HbA1c in Diabetic Patients: A1c (NGSP%) Goal <8 Less Stringent Goal <7 General Goal <6.5 More Stringent Goal Diagnosis of Diabetes: A1c (NGSP%) Goal >6.5 Diabetic 5.7-6.4 Pre-Diabetic <5.7 Non-Diabetic TOTAL PROTEIN 2025-01-26 07:10 [facility] 7.4 g/dl As of November 2022 testing method has changed, this may include reference ranges. CALCIUM 2025-01-26 07:10 [facility] 9.4 mg/dl As of November 2022 testing method has changed, this may include reference ranges. LDL CHOLESTEROL,CALCULATED 2025-01-26 07:10 [facility] 92 mg/dl LDLD REFERENCE RANGE AND CARDIOVASCULAR RISK: <130 mg/dL Desirable 130-159 mg/dL Borderline High Risk >160 mg/dL High Risk MEAN CORPUSCULAR VOLUME 2025-01-26 07:10 [facility] 95.3 fl (missing) Result panel 4 CREATININE 2025-03-09 07:27 [facility] 1.5 mg/dl As of November 2022 testing method has changed, this may include reference ranges. CHLORIDE 2025-03-09 07:27 [facility] 102 mmol/l As of November 2022 testing method has changed, this may include reference ranges. SODIUM 2025-03-09 07:27 [facility] 137 mmol/l (missing) GLUCOSE 2025-03-09 07:27 [facility] 139 mg/dl As of November 2022 testing method has changed, this may include reference ranges. BUN - BLOOD UREA NITROGEN 2025-03-09 07:27 [facility] 26 mg/dl As of Nov testing method has changed, this may include reference ranges. POTASSIUM 2025-03-09 07:27 [facility] 3.6 mmol/l As of November 2022 testing method has changed, this may include reference ranges. CARBON DIOXIDE - CO2 2025-03-09 07:27 [facility] 30 mmol/l As of Nov testing method has changed, this may include reference ranges. GFR - MDRD 2025-03-09 07:27 [facility] 45 (missin g) The IDMS-traceable MDRD Study Equation has been validated extensively in and populations between the ages of 18 and 70 with impaired kidney function (eGFR < 60 mL/min/1.73m2) and has shown good performance for patients with all common causes of kidney disease. Although this equation has not been validated for patients older than 70, an MDRD-derived eGFR may still be a useful tool for providers caring for patients older than 70. References: http://www.nkdep.nih .gov/lab-evaluation/ gfr/creatinine-stand ardization, last updated July 2011. ANION GAP 2025-03-09 07:27 [facility] 5.0 (missing ) (missing) CALCIUM 2025-03-09 07:27 [facility] 9.0 mg/dl As of November 2022 testing method has changed, this may include reference ranges. Social History date description facility
[2025-03-12 19:47] LABS: HCT - HEMATOCRIT 42.6 % (42.0-52.0); HGB - HEMOGLOBIN 14.2 g/dL (14.0-18.0); MEAN PLATELET VOLUME 9.6 fL (7.4-11.4); NRBC ABSOLUTE COUNT (AUTO) 0.00 x10^3/uL; NUCLEATED RED BLOOD CELLS AUTO 0.0 /100WBC; PLT - PLATELET COUNT 218 10^3/uL (130-450); RED CELL DISTRIBUTION WIDTH 12.2 % (12.0-15.0)
--- NOTE | 2025-03-12 19:47 | ED Physician Documentation ---
History of Present Illness Stated complaint Stated Complaint: ABD PX Chief complaint Chief Complaint: Abd Pain Additonal information Additional information: Patient is an 79-year-old male with history of diabetes, hypertension, presenting with sudden onset of diffuse abdominal pain that began today around 3:00pm. Patient is primarily [place] language speaking, though interview was assisted with help of his daughter. Patient was at his baseline state of health today when the symptoms began abruptly. Describes 9 out of 10 pain throughout his abdomen that is diffuse. He ate a normal diet of fruit today, states that he has had bowel movement since then that is normal, denies dark tarry stools, bloody stools. Denies any urination changes. There has been no fever, chills, nausea, vomiting. Denies any chest pain, chest pressure, chest heaviness. Den ies any indigestion. Endorses mild distention of the abdomen, and diffuse discomfort worse on the left side. Does have a history of remote liver surgery but they cannot tell me more specifically what was performed. Patient does not have a history of recurrent bowel obstruction or frequent abdominal surgery according to daughter. Denies previous history of colitis, diverticulitis. Review of Systems Status of ROS: See HPI Meds/Allgy Home Medications Ambulatory Orders Medication Instructions Recorded Confirmed blood sugar diagnostic (Accutrend 07/15/24 03/12/25 Glucose test strips) blood-glucose meter 07/15/24 03/12/25 amlodipine 10 mg tablet (Norvasc) 10 mg PO DAILY #90 t abs 02/02/25 03/12/25 carvedilol 25 mg tablet 25 mg PO BID #180 tabs 02/0203/12/25 chlorthalidone 25 mg tablet 12.5 mg (1/2 x 25 mg) PO Q DAY #45 02/02/25 03/12/25 tabs clonidine HCl 0.1 mg tablet 0.1 mg PO .qhs #90 tabs 03/12/25 glipizide 10 mg tablet 10 mg PO BID #90 tabs 03/12/25 hydralazine 100 mg tablet See Rx Instructions .Route 0 02/02/25 03/12/25 .COMPLEX #270 tabs metformin 500 mg tablet 500 mg PO BID #180 tabs 01/1703/12/25 prazosin 1 mg capsule 4 mg (4 x 1 mg) PO QPM #360 caps 02/02/25 03/12/25 telmisartan 80 mg tablet (Micardis) 80 mg PO DAILY #90 tabs 02/02/25 03/12/25 empagliflozin 10 mg tablet 10 mg PO DAILY 03/12/25 (Jardiance) furosemide 20 mg tablet 20 mg PO DAILY 03/12/2502/17 Allergies Allergies Allergy/AdvReac Type Severity Reaction Status Date / Time spironolactone Allergy Severe Unknown Verified 03/12/25 19:31 hydrochlorothiazide Allergy Unknown Verified 03/12/25 19:31 lisinopril Allergy Unknown Verified 03/12/25 19:31 lovastatin AdvReac Severe liver Verified 03/12/25 19:31 enzymes PFSH Active Problems All Active Problems Small bowel obstruction (Acute) Macrocytic anemia (Acute) Screening for malignant neoplasm (Acute) CKD stage 3 secondary to diabetes (Acute) Lower extremity edema (Acute) BPH (benign prostatic hyperplasia) (Acute) Allergic rhinitis (Acute) Hyperlipidemia (Acute) Diabetes mellitus (Acute) Dermatitis (Acute) Benign essential hypertension (Acute) GERD (gastroesophageal reflux disease) (Acute) Prostate cancer screening (Acute) Colon cancer screening (Acute) Liver disease (Acute) Medical History Medical History Chronic neck and back pain Degenerative joint disease of cervical spine Degenerative joint disease Family history of CVA brother and sister Social History Social History Smoking Status: Never smoker Second hand tobacco smoke exposure: No Do you dip or chew tobacco?: No Do you vape?: No Living arrangement: At home Living Condition: With family Support Person: Yes Level: Independent Do you feel safe in your home environment?: Yes History of physical, verbal, emotional, or financial abuse?: No ETOH Use: None Frequency: Occasional Substance Use: denies use Exam Exam Vital Signs: Vital Signs x48h Temp Pulse Resp BP Pulse Ox 03/12/25 21:27 77 16 146/69 H 95 03/12/25 20:00 72 18 152/77 H 97 03/12/25 19:21 36.2 C L 72 20 147/80 H 95 Constitutional normal general appearance Resting comfortably, no acute distress. Nontoxic, no diaphoresis, no pallor. HENMT normocephalic Eyes conjunctivae normal Respiratory breath sounds equal bilaterally, normal respiratory effort, clear to auscultation bilaterally and no wheezes Clear to auscultation bilaterally, no increased respiratory effort. Satting at 96% on room air. Cardiovascular Regular rate and rhythm, normal S1-S2. Radial pulses are 2+ and symmetric. Gastrointestinal Mild distention in abdomen diffusely. Tenderness to palpation throughout his abdomen, more severe tenderness to palpation specifically in the left upper and left lower quadrant. Bilateral CVA tenderness present. No guarding, no rigidity. No peritoneal signs. Rebound tenderness is present throughout abdomen. Extremities normal to inspection Neurology master ship II-XII intact and no fasciculations noted Psychiatry mental status grossly normal and oriented x3 Skin skin color normal Results Vitals Vitals: Vital Signs - 24 hr 03/12/25 19:21 03/12/25 19:56 03/12/25 20:00 Temperature 36.2 C L Temperature Source Tympanic Pulse Rate 72 72 Respiratory Rate 20 18 Blood Pressure 147/80 H 152/77 H O2 Saturation 95 97 O2 Source Room air Pain Intensity 9 7 03/12/25 20:26 03/12/25 21:27 03/12/25 21:27 Temperature Temperature Source Pulse Rate 77 Respiratory Rate 16 Blood Pressure 146/69 H O2 Saturation 95 O2 Source Room air Pain Intensity 0 3 0 Oxygen O2 Source Room air Labs Labs: Laboratory Tests 03/12/25 03/12/25 19:42 21:11 WBC 13.0 H RBC 4.55 L Hgb 14.2 Hct 42.6 MCV 93.6 MCH 31.2 H MCHC 33.3 RDW 12.2 Plt Count 218 MPV 9.6 Neut # (Auto) 9.5 H Lymph # (Auto) 2.2 Jay # (Auto) 0.8 Eos # (Auto) 0.4 Baso # (Auto) 0.1 Absolute Nucleated RBC 0.00 Nucleated RBC % 0.0 Sodium 137 Potassium 3.4 L Chloride 98 L Carbon Dioxide 30 Anion Gap 9.0 BUN 30 H Creatinine 1.8 H Estimated GFR (MDRD) 36 L Glucose 191 H Lactic Acid 1.1 Calcium 9.5 Total Bilirubin 0.6 AST 14 ALT 16 Alkaline Phosphatase 48 Total Protein 8.2 Albumin 4.4 Globulin 3.8 Albumin/Globulin Ratio 1.2 Lipase 41 Urine Color LIGHT YELLOW Urine Clarity CLEAR Urine pH 7.0 Ur Specific [place] 1.010 Urine Protein NEGATIVE Urine Glucose (UA) >=1000 H Urine Ketones NEGATIVE Urine Occult Blood NEGATIVE Urine Nitrite NEGATIVE Urine Bilirubin NEGATIVE Urine Urobilinogen 0.2 (NORMAL) Ur Leukocyte Esterase NEGATIVE Ur Microscopic Review NOT INDICATED Urine Culture Comments NOT INDICATED PD Medical Decision Making ED course ED course: Assessment: Patient is a 79-year-old male with history of hypertension, type 2 diabetes, presenting with sudden onset of abdominal pain today that began around 1500 hrs. Endorses diffuse abdominal pain that is difficult for him to localize, but states that there is some mild distention. States that he had a normal bowel movement earlier today. Denies urination changes. Denies fever, chills. Initially was not endorsing any nausea or vomiting, though throughout his time in ER did develop nausea with 2 episodes of vomiting. Rates his abdominal pain is 9 out of 10. DDx: Includes but is not limited to, small bowel obstruction, volvulus, ischemic bowel, colitis, diverticulitis, appendicitis, cholecystitis, etc. Workup: CBC with white count of 13.0. Stable hemoglobin. CMP with a potassium of 3.4, BUN 30, creatinine at 1.8 which is elevated from his baseline which appears to be about 1.3-1.4/5. Lipase normal. Lactic acid within normal limits. No transaminitis. No elevation of bilirubin. Urine studies with significant glucose but otherwise no evidence of infection. CT abdomen demonstrated a small bowel obstruction with a transition point identified in the left midabdomen near the jejunum. Treatment: 1 L IVF, Dilaudid 0.5 mg, Zofran 4 mg Discussion: I talked this patient's case over with on-call surgeon Dr. Jefferson, who recommended admission to the hospital, with likely Gastrografin study. Decision whether to medically manage or surgically manage this patient will be left to on-call surgeon. He will be admitted to surgeons team here at our hospital. I explained this to patient and his daughter who was there at bedside assisting with translation. They are agreeable with admission this time. His pain is currently well-controlled, and he has remained hemodynamically stable. During my shift patient transferred to the floor. Discharge Plan Discharge Patient Disposition: 66 [facility] DC/Xfer Condition: Stable Clinical Impression: Small bowel obstruction
[2025-03-12] MEDS: HYDROmorphone 0.5 MG/0.5 ML SYRINGE IVP STA (19:56)
[2025-03-12 20:05] LABS: ALT ALANINE AMINOTRANSFERASE 16.0 IU/L (10-60); AST ASPARTATE AMINOTRANSFERASE 14.0 IU/L (10-42); BUN - BLOOD UREA NITROGEN 30.0 mg/dL (6-20); CARBON DIOXIDE - CO2 30.0 mmol/L (21-32); CREATININE 1.8 mg/dL (0.6-1.3); GFR - MDRD 36.0 (>89)
[2025-03-12] MEDS: SODIUM CHLORIDE 0.9% 1,000 ML IV STA (20:19)
[2025-03-12 21:20] LABS: GLUCOSE, URINE (UA) >=1000 mg/dL (NEGATIVE); KETONES,URINE (UA) NEGATIVE (NEGATIVE); OCCULT BLOOD,URINE NEGATIVE (NEGATIVE)
--- NOTE | 2025-03-12 21:28 | CT Report ---
PROCEDURE: CT Abdomen/Pelvis W INDICATIONS: sudden onset severe abdominal pain, diffuse CONTRAST: 100 ML OMNI 300 TECHNIQUE: After the administration of intravenous contrast, a CT scan of the abdomen and pelvis was performed. Images were recorded and evaluated at appropriate window settings. Reformats: coronal and sagittal. For radiation dose reduction, the following was used: automated exposure control, adjustment of mA and/or kV according to patient size. COMPARISON: None. FINDINGS: Image quality: Diagnostic Lower chest: Lung bases are unremarkable. Coronary calcifications. Mild nonspecific distal esophageal wall thickening. Liver: Unremarkable Gallbladder and biliary system: Gallbladder appears packed with stones. No biliary ductal dilation Pancreas: No ductal dilation Spleen: Nonenlarged Adrenals: No discrete nodules Kidneys: No solid renal mass. No hydronephrosis. Moderate left renal atrophy, asymmetric to the right. Tiny nonobstructing calculus in the left upper pole Vessels and lymph nodes: The main portal vein appears patent. Mild to moderate aortoiliac atherosclerotic calcifications. There are no enlarged lymph nodes by size criteria Bowel and peritoneum: Mild to moderate gastric distention. Small bowel obstruction, with transition point in the left mid abdomen in the region of the jejunum Mild surrounding mesenteric edema. Mild wall thickening of the bowel loops distal to the obstruction point. Trace pelvic free fluid. Unremarkable CT appearance of the colon nondilated appendix Body wall: Small fat-containing inguinal hernias. Small fat-containing umbilical hernia. Pelvis: Bladder is unremarkable. Probable TURP changes. Heterogeneous prostate enhancement, nonspecific. Bones: Small sclerotic lesion in the left posterior iliac bone, indeterminate possibly bone island. Degenerative osseous findings. IMPRESSION: Small bowel obstruction, with transition point in the left mid abdomen in the region of the jejunum. Mild wall thickening of the bowel loops distal to the obstruction, possibly enteritis or reactive. Mild mesenteric edema and trace pelvic free fluid. Other findings above. Reviewed by: Mendoza Beebe MD on 03/12/2025 9:25 PM PDT Approved by: Mendoza Beebe MD on 03/12/2025 9:25 PM PDT Station ID: [id number]
[2025-03-12] MEDS: ONDANSETRON 4 MG/2 ML VIAL IVP STA (22:00)
[2025-03-12] MEDS ORDERED: hydrALAZINE INJ 20 MG/ML VIAL IVP PRN (22:29)
[2025-03-12] MEDS ORDERED: SODIUM CHLORIDE FLUSH 0.9% 10 ML SYRINGE IVP PRN (23:15)
[2025-03-12] MEDS: INSULIN REGULAR, HUMAN 300 UNIT/3 ML PEN SUBQ SCH (23:31)
[2025-03-12] MEDS: NS W/20 MEQ KCL 1,000 ML IV SCH (23:33)
--- NOTE | 2025-03-12 23:35 | CONSULTATION NOTE ---
Referring Provider Name of Referring Provider:: Dr. Jefferson Consult Date: 03/12/25 Chief Complaint Chief Complaint Chief Complaint: Abdominal pain History of Present Illness History of Present Illness HPI Comment/Other: 79 y old male with PMH HTN, DM type 2, Hyperlipidemia, BPH, GERD presneted to ER due to abdominal pain. CT abdomen/pelvis showed SBO. Pt was admitted by surgery. Hospitalist service was consulted for medical management for HTN and diabetes. Meds/Allgy Home Medications Ambulatory Orders Medication Instructions Recorded Confirmed blood sugar diagnostic (Accutrend 07/15/24 03/12/25 Glucose test strips) blood-glucose meter 07/15/24 03/12/25 amlodipine 10 mg tablet (Norvasc) 10 mg PO DAILY #90 t abs 02/02/25 03/12/25 carvedilol 25 mg tablet 25 mg PO BID #180 tabs 02/0203/12/25 chlorthalidone 25 mg tablet 12.5 mg (1/2 x 25 mg) PO Q DAY #45 02/02/25 03/12/25 tabs clonidine HCl 0.1 mg tablet 0.1 mg PO .qhs #90 tabs 03/12/25 glipizide 10 mg tablet 10 mg PO BID #90 tabs 03/12/25 hydralazine 100 mg tablet See Rx Instructions .Route 0 02/02/25 03/12/25 .COMPLEX #270 tabs metformin 500 mg tablet 500 mg PO BID #180 tabs 01/1703/12/25 prazosin 1 mg capsule 4 mg (4 x 1 mg) PO QPM #360 caps 02/02/25 03/12/25 telmisartan 80 mg tablet (Micardis) 80 mg PO DAILY #90 tabs 02/02/25 03/12/25 empagliflozin 10 mg tablet 10 mg PO DAILY 03/12/25 (Jardiance) furosemide 20 mg tablet 20 mg PO DAILY 03/12/2502/17 Allergies Allergies Allergy/AdvReac Type Severity Reaction Status Date / Time spironolactone Allergy Severe Unknown Verified 03/12/25 19:31 hydrochlorothiazide Allergy Unknown Verified 03/12/25 19:31 lisinopril Allergy Unknown Verified 03/12/25 19:31 lovastatin AdvReac Severe liver Verified 03/12/25 19:31 enzymes PFSH Active Problems All Active Problems Small bowel obstruction (Acute) Macrocytic anemia (Acute) Screening for malignant neoplasm (Acute) CKD stage 3 secondary to diabetes (Acute) Lower extremity edema (Acute) BPH (benign prostatic hyperplasia) (Acute) Allergic rhinitis (Acute) Hyperlipidemia (Acute) Diabetes mellitus (Acute) Dermatitis (Acute) Benign essential hypertension (Acute) GERD (gastroesophageal reflux disease) (Acute) Prostate cancer screening (Acute) Colon cancer screening (Acute) Liver disease (Acute) Medical History Medical History Chronic neck and back pain Degenerative joint disease of cervical spine Degenerative joint disease Family history of CVA brother and sister Social History Social History Smoking Status: Never smoker Second hand tobacco smoke exposure: No Do you dip or chew tobacco?: No Do you vape?: No Living arrangement: At home Living Condition: With family Support Person: Yes Level: Independent Do you feel safe in your home environment?: Yes History of physical, verbal, emotional, or financial abuse?: No ETOH Use: None Frequency: Occasional Substance Use: denies use POLST Patient has POLST: No Results Lab Results 03/12/25 19:42 03/12/25 19:42 Other Lab Results: Lab Results x24hrs 03/12/25 03/12/25 Range/Units 21:11 19:42 WBC 13.0 H (4.8-10.8) x10^3/uL RBC 4.55 L (4.70-6.10) 10^6/uL Hgb 14.2 (14.0-18.0) g/dL Hct 42.6 (42.0-52.0) % MCV 93.6 (80.0-94.0) fL MCH 31.2 H (27.0-31.0) pg MCHC 33.3 (32.0-36.0) g/dL RDW 12.2 (12.0-15.0) % Plt Count 218 (130-450) 10^3/uL MPV 9.6 (7.4-11.4) fL Neut # (Auto) 9.5 H (1.5-6.6) 10^3/uL Lymph # (Auto) 2.2 (1.5-3.5) 10^3/uL Isabella # (Auto) 0.8 (0.0-1.0) 10^3/uL Eos # (Auto) 0.4 (0.0-0.7) 10^3/uL Baso # (Auto) 0.1 (0.0-0.1) 10^3/uL Absolute Nucleated RBC 0.00 x10^3/uL Nucleated RBC % 0.0 /100WBC Sodium 137 (135-145) mmol/L Potassium 3.4 L (3.5-4.5) mmol/L Chloride 98 L (101-111) mmol/L Carbon Dioxide 30 (21-32) mmol/L Anion Gap 9.0 (6-13) BUN 30 H (6-20) mg/dL Creatinine 1.8 H (0.6-1.3) mg/dL Estimated GFR (MDRD) 36 L (>89) Glucose 191 H (74-104) mg/dL Lactic Acid 1.1 (0.5-2.2) mmol/L Calcium 9.5 (8.5-10.3) mg/dL Total Bilirubin 0.6 (0.2-1.0) mg/dL AST 14 (10-42) IU/L ALT 16 (10-60) IU/L Alkaline Phosphatase 48 (42-121) IU/L Total Protein 8.2 (6.4-8.9) g/dL Albumin 4.4 (3.2-5.5) g/dL Globulin 3.8 (2.1-4.2) g/dL Albumin/Globulin Ratio 1.2 (1.0-2.2) Lipase 41 (11-82) U/L Urine Color LIGHT YELLOW Urine Clarity CLEAR (CLEAR) Urine pH 7.0 (5.0-7.5) PH Ur Specific [place] 1.010 (1.002-1.030) Urine Protein NEGATIVE (NEGATIVE) mg/dL Urine Glucose (UA) >=1000 H (NEGATIVE) mg/dL Urine Ketones NEGATIVE (NEGATIVE) mg/dL Urine Occult Blood NEGATIVE (NEGATIVE) Urine Nitrite NEGATIVE (NEGATIVE) Urine Bilirubin NEGATIVE (NEGATIVE) Urine Urobilinogen 0.2 (NORMAL) (NORMAL) E.U./dL Ur Leukocyte Esterase NEGATIVE (NEGATIVE) Ur Microscopic Review NOT INDICATED Urine Culture Comments NOT INDICATED Review of Systems Status of ROS: 10 or more systems reviewed and unremarkable except as noted in history and below Exam Exam Vital Signs: Vital Signs x48h Temp Pulse Resp BP Pulse Ox 03/12/25 23:17 87 22 143/89 H 98 03/12/25 22:30 82 135/78 H 91 L 03/12/25 21:27 77 16 146/69 H 95 03/12/25 20:00 72 18 152/77 H 97 03/12/25 19:21 36.2 C L 72 20 147/80 H 95 Constitutional normal general appearance HENMT normocephalic Eyes PERRL Neck/C-Spine visual inspection normal Chest inspection of chest normal Respiratory breath sounds equal bilaterally Cardiovascular normal heart rate noted Gastrointestinal abdomen normal to inspection Extremities normal to inspection Neurology no focal motor deficit noted Conclusion/Plan Problem List (1) Small bowel obstruction: Plan: A: SBO Abdominal pain Leukocytosis Hypokalemia NOHEMY HTN DM type 2 Hyperlipidemia BPH GERD Plan: Admit to med surg NPO NG Management of SBO per surgery IVF Monitor i/o, electrolytes Replace k Start hydralazine 10 mg iv q6h prn for SBP > 170 Start sliding scale insulin DVT prophylaxic: SCD Full code Lab Results 03/12/25 19:42 03/12/25 19:42
[2025-03-13] MEDS: SODIUM CHLORIDE FLUSH 0.9% 10 ML SYRINGE IVP SCH (00:04)
[2025-03-13] MEDS: HYDROmorphone 0.5 MG/0.5 ML SYRINGE IVP PRN (04:24)
[2025-03-13] MEDS: ONDANSETRON 4 MG/2 ML VIAL IVP PRN (04:31)
[2025-03-13 04:51] LABS: HCT - HEMATOCRIT 43.1 % (42.0-52.0); HGB - HEMOGLOBIN 14.7 g/dL (14.0-18.0); MEAN PLATELET VOLUME 9.8 fL (7.4-11.4); NRBC ABSOLUTE COUNT (AUTO) 0.00 x10^3/uL; NUCLEATED RED BLOOD CELLS AUTO 0.0 /100WBC; PLT - PLATELET COUNT 193 10^3/uL (130-450); RED CELL DISTRIBUTION WIDTH 12.2 % (12.0-15.0)
[2025-03-13 05:08] LABS: ALT ALANINE AMINOTRANSFERASE 14.0 IU/L (10-60); AST ASPARTATE AMINOTRANSFERASE 14.0 IU/L (10-42); BUN - BLOOD UREA NITROGEN 22.0 mg/dL (6-20); CARBON DIOXIDE - CO2 30.0 mmol/L (21-32); CREATININE 1.4 mg/dL (0.6-1.3); GFR - MDRD 49.0 (>89)
--- NOTE | 2025-03-13 07:58 | PHARMACY PROGRESS NOTE ---
Best Possible Medication History Admit Date and Time: 03/12/25 2156 Home Medications Medication Instructions Recorded Confirmed Type blood sugar diagnostic (Accutrend 07/15/24 03/12/25 H istory Glucose test strips) blood-glucose meter 07/15/24 03/12/25 History amlodipine 10 mg tablet (Norvasc) 10 mg PO DAILY #90 t abs 02/02/25 03/12/25 Rx carvedilol 25 mg tablet 25 mg PO BID #180 tabs 02/0203/12/25 Rx chlorthalidone 25 mg tablet 12.5 mg (1/2 x 25 mg) PO Q DAY #45 02/02/25 03/12/25 Rx tabs clonidine HCl 0.1 mg tablet 0.1 mg PO .qhs #90 tabs 03/12/25 Rx glipizide 10 mg tablet 10 mg PO BID #90 tabs 03/12/25 Rx hydralazine 100 mg tablet See Rx Instructions .Route 0 02/02/25 03/12/25 Rx .COMPLEX #270 tabs metformin 500 mg tablet 500 mg PO BID #180 tabs 01/1703/12/25 Rx prazosin 1 mg capsule 4 mg (4 x 1 mg) PO QPM #360 caps 02/02/25 03/12/25 Rx telmisartan 80 mg tablet (Micardis) 80 mg PO DAILY #90 tabs 02/02/25 03/12/25 Rx empagliflozin 10 mg tablet 10 mg PO DAILY 03/12/25 History (Jardiance) furosemide 20 mg tablet 20 mg PO DAILY 03/12/2502/17 History Processed by: Nursing Medications reviewed in ED?: Yes Medication History completed: Yes Patient Interview: Completed Secondary Source(s): Pharmacy records and Insurance records [facility] Statement: As the person ultimately responsible for medication therapy, providers are able to order a medication from an existing home medication list in [facility] via the "Reconcile Routine" prior to Confirmation of that medication by patient support tech. Such practice is discouraged except when the physician, in their clinical judgment, deems that a medical need exists for a medication without regard to previous use.
--- NOTE | 2025-03-13 10:51 | PROVIDER PROGRESS NOTE ---
<Statement entered by Anatoliy Jackman DNP - 03/13/25 17:02> Patient was seen and examined by me with a separate encounter after being seen by [employer]ANCH[employer] student. I reviewed the student's documentation including patient history, physical examination, laboratory, imaging, clinical assessment and treatment plan. I have discussed the management of the patient with the student, and with the patient. There are no changes. Briefly, patient is admitted to surgery for small bowel obstruction. We are consulted for medical management of his hypertension. Patient is strict n.p.o., and allergic to MIC inhibitors. Our options for antihypertensives include hydralazine IV, as well as labetalol IV and clonidine patch. Hydralazine IV was started by admitting physician. I have added clonidine patch Subjective Prog Note Date Prog Note Date: 03/13/25 Prog Note Time: 10:15 Subjective Pt reports feeling: No change Subjective: 03/12 - Saurav is a 79 y old male with a history of DM2, stage 3 CKD, Hypertension, Hyperlipidemia, and GERD presented to ER due to severe abdominal pain. Abdominal CT showed signs of small bowel obstruction. He was admitted by surgery. Hospitalist team has been consulted for medical management of HTN and diabetes. Small Bowel Obstruction Pt admitted last night (03/13) for suspected small bowel obstruction. He reports feeling severe left-sided and periumbilical abdominal pain. His current pain is 7/10. His last BM was 2pm 03/12. He states that he has not passed any BM or gas since then. Hypertension Patient has a history of benign essential hypertension managed at home with amlodipine, carvedilol, clonidine, chlorthalidone, furosemide, hydralazine, prazosin, and telmisartan. Diabetes Pt has a history of DM2 that is well managed at home with glipizide, empagliflozin, and metformin. ROS: Denies nausea, vomiting, fever, chills, night sweats Denies headache, dizziness Denies SOB, chest pain, chest tightness, palpitations Reports abdominal bloating Reports no BM or flatus since 2pm 03/12 Reports 7/10 abdominal pain Reports mild central back pain Denies changes in urinary frequency or urgency. Denies pain with urination. Pt is primarily Tagalog-speaking. 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 Current Medications Current Medications Current Medications: Current Medications Generic Name Dose Route Start Last Admin Trade Name Freq PRN Reason Stop Dose Admin Hydralazine HCl 10 mg 03/12/25 22:29 Hydralazine Inj 20 Mg/Ml Vial IVP Q6H PRN Highblood pressure Hydromorphone HCl 0.5 mg 03/13/25 04:16 03/13/25 07:57 Hydromorphone 0.5 Mg/0.5 Ml Syringe IVP 0.5 mg Q1H PRN Administration Severe Pain (Level 7-10) Potassium Chloride/Sodium Chloride 1,000 mls @ 100 mls/hr 03/12/25 23:15 03/13/25 08:55 Normal Saline 0.9% W/20 Meq Kcl IV 100 mls/hr .Q10H LUKAS Administration Insulin Human Regular 1 - 5 unit 03/13/25 00:00 03/13/25 06:04 Insulin Regular, Human 300 Unit/3 Ml Pen SUBQ Not Given Q6HR LUKAS Protocol Ondansetron HCl 4 mg 03/12/25 23:15 03/13/25 04:31 Ondansetron 4 Mg/2 Ml Vial IVP 4 mg Q6HR PRN Administration Nausea / Vomiting Sodium Chloride 10 ml 03/12/25 23:15 Sodium Chloride Flush 0.9% 10 Ml Syringe IVP PRN PRN NEEDED PER PROVIDER ORDERS Sodium Chloride 10 ml 03/13/25 01:00 03/13/25 09:16 Sodium Chloride Flush 0.9% 10 Ml Syringe IVP 10 ml 0100,0900,1700 LUKAS Administration Objective Vital Signs/Intake & Output Reviewed Vital Signs: Yes Vital Signs: Vital Signs x48h Temp Pulse Resp BP Pulse Ox 03/13/25 09:00 36.9 C 75 24 160/78 H 96 03/13/25 04:28 37.0 C 77 19 153/76 H 96 Intake & Output: Intake & Output 03/10/25 03/11/25 03/12/25 03/13/25 23:59 23:59 23:59 23:59 Intake Total 1000 / 1000 937 / 937 Balance 1000 / 1000 937 / 937 Weight (kg) 65.5 kg Objective General Appearance: positive No acute distress and Alert Respiratory: positive No respiratory distress and Breath sounds nml; negative Wheezes, Rales or Rhonchi Cardiovascular: positive Regular rate & rhythm; negative No murmur, No gallop or Friction rub Peripheral Pulses: 2+: Radial (R), 2+: Radial (L), 2+: Dorsalis pedis (R) and 2+: Dorsalis pedis (L) Abdomen: positive No organomegaly, Tenderness (LLQ, LUQ, and epigastric), Guarding (LLQ, LUQ, and epigastric) and Abnml bowel sounds (slightly decreased); negative Rebound, Hepatomegaly or Splenomegaly Back: positive Nml inspection (No abnormal skin findings, eccymoses, or lesions) and Other (mild perispinal tenderness to palpation around T10-T11) Skin: positive Color nml (no jaundice) Extremities: positive No pedal edema Neurologic/Psychiatric: positive Oriented x3 Lab Results 03/13/25 04:12 03/13/25 04:12 Other Labs: Lab Results x24hrs 03/13/25 03/13/25 03/12/25 Range/Units 06:04 04:12 23:29 WBC 10.0 (4.8-10.8) x10^3/uL RBC 4.66 L (4.70-6.10) 10^6/uL Hgb 14.7 (14.0-18.0) g/dL Hct 43.1 (42.0-52.0) % MCV 92.5 (80.0-94.0) fL MCH 31.5 H (27.0-31.0) pg MCHC 34.1 (32.0-36.0) g/dL RDW 12.2 (12.0-15.0) % Plt Count 193 (130-450) 10^3/uL MPV 9.8 (7.4-11.4) fL Neut # (Auto) 6.6 (1.5-6.6) 10^3/uL Lymph # (Auto) 2.4 (1.5-3.5) 10^3/uL Crane # (Auto) 0.8 (0.0-1.0) 10^3/uL Eos # (Auto) 0.1 (0.0-0.7) 10^3/uL Baso # (Auto) 0.1 (0.0-0.1) 10^3/uL Absolute Nucleated RBC 0.00 x10^3/uL Nucleated RBC % 0.0 /100WBC Sodium 139 (135-145) mmol/L Potassium 3.6 (3.5-4.5) mmol/L Chloride 102 (101-111) mmol/L Carbon Dioxide 30 (21-32) mmol/L Anion Gap 7.0 (6-13) BUN 22 H (6-20) mg/dL Creatinine 1.4 H (0.6-1.3) mg/dL Estimated GFR (MDRD) 49 L (>89) Glucose 109 H (74-104) mg/dL POC Whole Bld Glucose 130 163 (70-100) mg/dL Lactic Acid (0.5-2.2) mmol/L Calcium 8.9 (8.5-10.3) mg/dL Total Bilirubin 0.5 (0.2-1.0) mg/dL AST 14 (10-42) IU/L ALT 14 (10-60) IU/L Alkaline Phosphatase 52 (42-121) IU/L Total Protein 7.5 (6.4-8.9) g/dL Albumin 4.3 (3.2-5.5) g/dL Globulin 3.2 (2.1-4.2) g/dL Albumin/Globulin Ratio 1.3 (1.0-2.2) Lipase (11-82) U/L Urine Color Urine Clarity (CLEAR) Urine pH (5.0-7.5) PH Ur Specific [place] (1.002-1.030) Urine Protein (NEGATIVE) mg/dL Urine Glucose (UA) (NEGATIVE) mg/dL Urine Ketones (NEGATIVE) mg/dL Urine Occult Blood (NEGATIVE) Urine Nitrite (NEGATIVE) Urine Bilirubin (NEGATIVE) Urine Urobilinogen (NORMAL) E.U./dL Ur Leukocyte Esterase (NEGATIVE) Ur Microscopic Review Urine Culture Comments 03/12/25 03/12/25 Range/Units 21:11 19:42 WBC 13.0 H (4.8-10.8) x10^3/uL RBC 4.55 L (4.70-6.10) 10^6/uL Hgb 14.2 (14.0-18.0) g/dL Hct 42.6 (42.0-52.0) % MCV 93.6 (80.0-94.0) fL MCH 31.2 H (27.0-31.0) pg MCHC 33.3 (32.0-36.0) g/dL RDW 12.2 (12.0-15.0) % Plt Count 218 (130-450) 10^3/uL MPV 9.6 (7.4-11.4) fL Neut # (Auto) 9.5 H (1.5-6.6) 10^3/uL Lymph # (Auto) 2.2 (1.5-3.5) 10^3/uL Crane # (Auto) 0.8 (0.0-1.0) 10^3/uL Eos # (Auto) 0.4 (0.0-0.7) 10^3/uL Baso # (Auto) 0.1 (0.0-0.1) 10^3/uL Absolute Nucleated RBC 0.00 x10^3/uL Nucleated RBC % 0.0 /100WBC Sodium 137 (135-145) mmol/L Potassium 3.4 L (3.5-4.5) mmol/L Chloride 98 L (101-111) mmol/L Carbon Dioxide 30 (21-32) mmol/L Anion Gap 9.0 (6-13) BUN 30 H (6-20) mg/dL Creatinine 1.8 H (0.6-1.3) mg/dL Estimated GFR (MDRD) 36 L (>89) Glucose 191 H (74-104) mg/dL POC Whole Bld Glucose (70-100) mg/dL Lactic Acid 1.1 (0.5-2.2) mmol/L Calcium 9.5 (8.5-10.3) mg/dL Total Bilirubin 0.6 (0.2-1.0) mg/dL AST 14 (10-42) IU/L ALT 16 (10-60) IU/L Alkaline Phosphatase 48 (42-121) IU/L Total Protein 8.2 (6.4-8.9) g/dL Albumin 4.4 (3.2-5.5) g/dL Globulin 3.8 (2.1-4.2) g/dL Albumin/Globulin Ratio 1.2 (1.0-2.2) Lipase 41 (11-82) U/L Urine Color LIGHT YELLOW Urine Clarity CLEAR (CLEAR) Urine pH 7.0 (5.0-7.5) PH Ur Specific [place] 1.010 (1.002-1.030) Urine Protein NEGATIVE (NEGATIVE) mg/dL Urine Glucose (UA) >=1000 H (NEGATIVE) mg/dL Urine Ketones NEGATIVE (NEGATIVE) mg/dL Urine Occult Blood NEGATIVE (NEGATIVE) Urine Nitrite NEGATIVE (NEGATIVE) Urine Bilirubin NEGATIVE (NEGATIVE) Urine Urobilinogen 0.2 (NORMAL) (NORMAL) E.U./dL Ur Leukocyte Esterase NEGATIVE (NEGATIVE) Ur Microscopic Review NOT INDICATED Urine Culture Comments NOT INDICATED Diagnostic Imaging Diagnostic Imaging Results: positive Final report reviewed Assessment/Plan Problem List (1) Small bowel obstruction: Impression: Managed by surgery. Pt will likely get NG tube to decompress. He is currently on 100 mL/hr fluids. Hydromorphone 0.5 mg IV q1hr PRN for pain and ondansetron 4 mg IV q6hrs PRN for nausea. (2) Benign essential hypertension: Impression: Pt chart notes a history of a lisinopril allergy with unknown reaction. Pt is NPO. Night doc gave hydralizine to manage BP. Due to patient's NPO status and MIC inhibitor allergy, we will treat with a clonidine patch. - clonidine 0.1 mg patch - continue to monitor BP (3) Diabetes mellitus: Impression: His DM2 is well managed at home with glipizide, empagliflozin, and metformin. Pt NPO. Glucose will be managed with insulin. - sliding scale insulin SUBQ q6hrs Qualifiers: Diabetes mellitus type: type 2 Diabetes mellitus middle or intermediate school principal insulin use: without fpc use Diabetes mellitus complication status: with kidney complications Diabetes mellitus complication detail: with chronic kidney disease Chronic kidney disease stage: stage 2 (GFR 60-89) Qualified Code(s): E 11.22 - Type 2 diabetes mellitus with diabetic chronic kidney disease; N18.2 - Chronic kidney disease, stage 2 (mild) (4) CKD stage 3 secondary to diabetes: Impression: - monitor creatinine values
[2025-03-13] MEDS: cloNIDine 0.1 MG PATCH TOP SCH (11:35)
--- NOTE | 2025-03-13 13:33 | CONSULTATION NOTE ---
Referring Provider Name of Referring Provider:: Dr. Paul Joel Consult Date: 03/12/25 Chief Complaint Chief Complaint Chief Complaint: Abdominal pain-small bowel obstruction History of Present Illness Admitted From Admitted From:: ED History Obtained From Records Reviewed: Yes History obtained from: Patient, chart, and Dr. Joel Exam Limitations: None History of Present Illness HPI Comment/Other: Patient is a very pleasant 79-year-old gentleman who is evaluated in room 2213 at [facility] MedSurg unit at the request of Dr. Joel. The patient presented to the emergency room yesterday with acute onset of abdominal pain in the mid abdomen at approximately 2 - 3 in the afternoon. This pain was unremitting and as such the patient was brought to the emergency room. This was accompanied by 1 episode of vomiting prior to his admission. He states that he had a normal bowel movement approximately 2:00 in the afternoon. The emesis did not have blood in his bowel movement also did not have blood. He states that this has not occurred previously. Additionally he had surgery states approximately 20 years ago I believe at [place] for what he states is a viral infection of his liver. This data is unavailable to me. I reviewed the patient's CT scan personally and reviewed the reading. Today the patient states that he feels that he is mildly better than he was yesterday. IV fluids have improved his lab values. Review of his chart shows that his blood pressure has been somewhat difficult to control. Between this and his diabetes I requested a internal medicine consultation for control of his blood pressure and his diabetes while he is NPO. [facility] Active Problems All Active Problems Small bowel obstruction (Acute) Macrocytic anemia (Acute) Screening for malignant neoplasm (Acute) CKD stage 3 secondary to diabetes (Acute) Lower extremity edema (Acute) BPH (benign prostatic hyperplasia) (Acute) Allergic rhinitis (Acute) Hyperlipidemia (Acute) Diabetes mellitus (Acute) Dermatitis (Acute) Benign essential hypertension (Acute) GERD (gastroesophageal reflux disease) (Acute) Prostate cancer screening (Acute) Colon cancer screening (Acute) Liver disease (Acute) Medical History Medical History Chronic neck and back pain Degenerative joint disease of cervical spine Degenerative joint disease Family history of CVA brother and sister Social History Social History Smoking Status: Never smoker If you are a former smoker, when did you quit? (Date/Year): 1998 Second hand tobacco smoke exposure: No Do you dip or chew tobacco?: No Do you vape?: No Patient requests smoking cessation consult: No Initiate information on smoking cessation: No Living arrangement: At home Living Condition: With family Support Person: Yes Level: Independent Do you feel safe in your home environment?: Yes History of physical, verbal, emotional, or financial abuse?: No ETOH Use: None Frequency: Occasional Substance Use: denies use POLST Patient has POLST: No Meds/Allgy Home Medications Ambulatory Orders Medication Instructions Recorded Confirmed blood sugar diagnostic (Accutrend 07/15/24 03/12/25 Glucose test strips) blood-glucose meter 07/15/24 03/12/25 amlodipine 10 mg tablet (Norvasc) 10 mg PO DAILY #90 t abs 02/02/25 03/12/25 carvedilol 25 mg tablet 25 mg PO BID #180 tabs 02/0203/12/25 chlorthalidone 25 mg tablet 12.5 mg (1/2 x 25 mg) PO Q DAY #45 02/02/25 03/12/25 tabs clonidine HCl 0.1 mg tablet 0.1 mg PO .qhs #90 tabs 03/12/25 glipizide 10 mg tablet 10 mg PO BID #90 tabs 03/12/25 hydralazine 100 mg tablet See Rx Instructions .Route 0 02/02/25 03/12/25 .COMPLEX #270 tabs metformin 500 mg tablet 500 mg PO BID #180 tabs 01/1703/12/25 prazosin 1 mg capsule 4 mg (4 x 1 mg) PO QPM #360 caps 02/02/25 03/12/25 telmisartan 80 mg tablet (Micardis) 80 mg PO DAILY #90 tabs 02/02/25 03/12/25 empagliflozin 10 mg tablet 10 mg PO DAILY 03/12/25 (Jardiance) furosemide 20 mg tablet 20 mg PO DAILY 03/12/2502/17 Allergies Allergies Allergy/AdvReac Type Severity Reaction Status Date / Time spironolactone Allergy Severe Unknown Verified 03/12/25 19:31 hydrochlorothiazide Allergy Unknown Verified 03/12/25 19:31 lisinopril Allergy Unknown Verified 03/12/25 19:31 lovastatin AdvReac Severe liver Verified 03/12/25 19:31 enzymes Results Lab Results Lab results reviewed: Yes 03/13/25 04:12 03/13/25 04:12 Other Lab Results: Lab Results x24hrs 03/13/25 03/13/25 03/13/25 Range/Units 11:54 06:04 04:12 WBC 10.0 (4.8-10.8) x10^3/uL RBC 4.66 L (4.70-6.10) 10^6/uL Hgb 14.7 (14.0-18.0) g/dL Hct 43.1 (42.0-52.0) % MCV 92.5 (80.0-94.0) fL MCH 31.5 H (27.0-31.0) pg MCHC 34.1 (32.0-36.0) g/dL RDW 12.2 (12.0-15.0) % Plt Count 193 (130-450) 10^3/uL MPV 9.8 (7.4-11.4) fL Neut # (Auto) 6.6 (1.5-6.6) 10^3/uL Lymph # (Auto) 2.4 (1.5-3.5) 10^3/uL [place] # (Auto) 0.8 (0.0-1.0) 10^3/uL Eos # (Auto) 0.1 (0.0-0.7) 10^3/uL Baso # (Auto) 0.1 (0.0-0.1) 10^3/uL Absolute Nucleated RBC 0.00 x10^3/uL Nucleated RBC % 0.0 /100WBC Sodium 139 (135-145) mmol/L Potassium 3.6 (3.5-4.5) mmol/L Chloride 102 (101-111) mmol/L Carbon Dioxide 30 (21-32) mmol/L Anion Gap 7.0 (6-13) BUN 22 H (6-20) mg/dL Creatinine 1.4 H (0.6-1.3) mg/dL Estimated GFR (MDRD) 49 L (>89) Glucose 109 H (74-104) mg/dL POC Whole Bld Glucose 131 130 (70-100) mg/dL Lactic Acid (0.5-2.2) mmol/L Calcium 8.9 (8.5-10.3) mg/dL Total Bilirubin 0.5 (0.2-1.0) mg/dL AST 14 (10-42) IU/L ALT 14 (10-60) IU/L Alkaline Phosphatase 52 (42-121) IU/L Total Protein 7.5 (6.4-8.9) g/dL Albumin 4.3 (3.2-5.5) g/dL Globulin 3.2 (2.1-4.2) g/dL Albumin/Globulin Ratio 1.3 (1.0-2.2) Lipase (11-82) U/L Urine Color Urine Clarity (CLEAR) Urine pH (5.0-7.5) PH Ur Specific Ang[place] (1.002-1.030) Urine Protein (NEGATIVE) mg/dL Urine Glucose (UA) (NEGATIVE) mg/dL Urine Ketones (NEGATIVE) mg/dL Urine Occult Blood (NEGATIVE) Urine Nitrite (NEGATIVE) Urine Bilirubin (NEGATIVE) Urine Urobilinogen (NORMAL) E.U./dL Ur Leukocyte Esterase (NEGATIVE) Ur Microscopic Review Urine Culture Comments 03/12/25 03/12/25 03/12/25 Range/Units 23:29 21:11 19:42 WBC 13.0 H (4.8-10.8) x10^3/uL RBC 4.55 L (4.70-6.10) 10^6/uL Hgb 14.2 (14.0-18.0) g/dL Hct 42.6 (42.0-52.0) % MCV 93.6 (80.0-94.0) fL MCH 31.2 H (27.0-31.0) pg MCHC 33.3 (32.0-36.0) g/dL RDW 12.2 (12.0-15.0) % Plt Count 218 (130-450) 10^3/uL MPV 9.6 (7.4-11.4) fL Neut # (Auto) 9.5 H (1.5-6.6) 10^3/uL Lymph # (Auto) 2.2 (1.5-3.5) 10^3/uL [place]mer # (Auto) 0.8 (0.0-1.0) 10^3/uL Eos # (Auto) 0.4 (0.0-0.7) 10^3/uL Baso # (Auto) 0.1 (0.0-0.1) 10^3/uL Absolute Nucleated RBC 0.00 x10^3/uL Nucleated RBC % 0.0 /100WBC Sodium 137 (135-145) mmol/L Potassium 3.4 L (3.5-4.5) mmol/L Chloride 98 L (101-111) mmol/L Carbon Dioxide 30 (21-32) mmol/L Anion Gap 9.0 (6-13) BUN 30 H (6-20) mg/dL Creatinine 1.8 H (0.6-1.3) mg/dL Estimated GFR (MDRD) 36 L (>89) Glucose 191 H (74-104) mg/dL POC Whole Bld Glucose 163 (70-100) mg/dL Lactic Acid 1.1 (0.5-2.2) mmol/L Calcium 9.5 (8.5-10.3) mg/dL Total Bilirubin 0.6 (0.2-1.0) mg/dL AST 14 (10-42) IU/L ALT 16 (10-60) IU/L Alkaline Phosphatase 48 (42-121) IU/L Total Protein 8.2 (6.4-8.9) g/dL Albumin 4.4 (3.2-5.5) g/dL Globulin 3.8 (2.1-4.2) g/dL Albumin/Globulin Ratio 1.2 (1.0-2.2) Lipase 41 (11-82) U/L Urine Color LIGHT YELLOW Urine Clarity CLEAR (CLEAR) Urine pH 7.0 (5.0-7.5) PH Ur Specific [place] 1.010 (1.002-1.030) Urine Protein NEGATIVE (NEGATIVE) mg/dL Urine Glucose (UA) >=1000 H (NEGATIVE) mg/dL Urine Ketones NEGATIVE (NEGATIVE) mg/dL Urine Occult Blood NEGATIVE (NEGATIVE) Urine Nitrite NEGATIVE (NEGATIVE) Urine Bilirubin NEGATIVE (NEGATIVE) Urine Urobilinogen 0.2 (NORMAL) (NORMAL) E.U./dL Ur Leukocyte Esterase NEGATIVE (NEGATIVE) Ur Microscopic Review NOT INDICATED Urine Culture Comments NOT INDICATED Diagnostic Imaging Results Diagnostic Imaging Results: positive Final report reviewed and Read independently Review of Systems Status of ROS: 10 or more systems reviewed and unremarkable except as noted in history and below Exam Exam Vital Signs: Vital Signs x48h Temp Pulse Resp BP Pulse Ox 03/13/25 09:00 36.9 C 75 24 160/78 H 96 General: 79-year old male, appears slightly younger than stated age, well developed, well nourished HEENT: Normocephalic, atraumatic, extraocular movement intact, mucous membranes pink and moist, sclera anicteric and not injected, tongue midline, Mallampati 2 Neck: Supple without pain on palpation, mass or bruit Cardiac: Regular rate and rhythm without rub, gallop, I thought I heard a murmur, but I had Dr. Cantu listen and she was not sure that she could appreciate a murmur Chest: Clear to auscultation bilaterally Abdomen: Soft, nontender, distended with slightly decreased bowel sounds, no hepatomegaly, no splenomegaly Genitourinary: Deferred Rectal: Deferred Extremities: No gross neurovascular problem, no clubbing, cyanosis or edema Gait: Not evaluated as I did not get the patient out of bed. Psychiatric: Alert and oriented to person place and time, asks and answers questions appropriately, mood and affect appropriate Conclusion/Plan Problem List (1) Small bowel obstruction: (2) Benign essential hypertension: (3) Diabetes mellitus: Qualifiers: Diabetes mellitus type: type 2 Diabetes mellitus retirement insulin use: without retirement use Diabetes mellitus complication status: with kidney complications Diabetes mellitus complication detail: with chronic kidney disease Chronic kidney disease stage: stage 2 (GFR 60-89) Qualified Code(s): E 11.22 - Type 2 diabetes mellitus with diabetic chronic kidney disease; N18.2 - Chronic kidney disease, stage 2 (mild) (4) CKD stage 3 secondary to diabetes: Plan Hospital day 1 status post admission for a small bowel obstruction I have been instructed that I need to change the patient's status from observation to inpatient. 1) FEN Continue IV fluids at current rate. Avoid giving patient sugar due to his diabetes. Continue to follow his electrolytes and CBC. 2) Abdomen Place nasogastric tube to low continuous suction to see whether or not this will resolve on its own without the need for surgery. This was discussed with the patient. I believe that waiting 24 to 48 hours is appropriate as long as the patient's condition does not worsen. If push comes to shove a Gastrografin challenge can be performed through this nasogastric tube obviating the need for the patient to swallow the Gastrografin. 3) Endocrine Diabetic care per my internal medicine colleaguesmuch appreciated. 4) Cardiac Treatment of hypertension per my internal medicine colleaguesmuch appreciated. 5) Pain IV pain medication written for and patient appears to be comfortablecontinue current treatment. 6) Activity Ambulate is much as possible. This may help with the return of bowel function. All of this was discussed with the patient vocalized understanding. CPT 09297 Lab Results Lab results reviewed: Yes 03/13/25 04:12 03/13/25 04:12 Diagnostic Imaging Results Diagnostic Imaging Results: positive Final report reviewed and Read independently
--- NOTE | 2025-03-13 15:04 | XRAY Report ---
PROCEDURE: XR Chest for Line Placement INDICATIONS: NGT placement check TECHNIQUE: One view of the chest was acquired. COMPARISON: None. FINDINGS: Surgical changes and devices: Subdiaphragmatic enteric tube with sideport distal to the GE junction and tip overlying the gastric body. Lungs and pleura: No pleural effusions or pneumothorax. No consolidation. Mediastinum: Mediastinal contours appear normal. Heart size is normal. Bones and chest wall: No suspicious bony lesions. Overlying soft tissues appear unremarkable. IMPRESSION: Subdiaphragmatic enteric tube with tip overlying the gastric body. Reviewed by: Addi Carrizales MD on 03/13/2025 3:01 PM PDT Approved by: Addi Carrizales MD on 03/13/2025 3:01 PM PDT Station ID: [email or web address]
[2025-03-14 05:04] LABS: HCT - HEMATOCRIT 43.3 % (42.0-52.0); HGB - HEMOGLOBIN 14.0 g/dL (14.0-18.0); MEAN PLATELET VOLUME 9.9 fL (7.4-11.4); NRBC ABSOLUTE COUNT (AUTO) 0.00 x10^3/uL; NUCLEATED RED BLOOD CELLS AUTO 0.0 /100WBC; PLT - PLATELET COUNT 181 10^3/uL (130-450); RED CELL DISTRIBUTION WIDTH 12.3 % (12.0-15.0)
[2025-03-14 05:19] LABS: ALT ALANINE AMINOTRANSFERASE 11.0 IU/L (10-60); AST ASPARTATE AMINOTRANSFERASE 14.0 IU/L (10-42); BUN - BLOOD UREA NITROGEN 17.0 mg/dL (6-20); CARBON DIOXIDE - CO2 25.0 mmol/L (21-32); CREATININE 1.2 mg/dL (0.6-1.3); GFR - MDRD 58.0 (>89)
--- NOTE | 2025-03-14 11:35 | PROVIDER PROGRESS NOTE ---
Subjective General Admit Date: 03/14/25 Other Other Information/Narrative: Hospital day #2 for small bowel obstruction being treated conservatively Review of Systems Status of ROS: 10 or more systems reviewed and unremarkable except as noted in history and below Exam Exam Vital Signs: Vital Signs x48h Temp Pulse Resp BP Pulse Ox 03/14/25 20:47 37.2 C 71 22 144/67 H 96 03/14/25 17:00 37.1 C 75 22 142/66 H 95 General: 79-year old male, appears slightly younger than stated age, well developed, well nourished HEENT: Normocephalic, atraumatic, extraocular movement intact, mucous membranes pink and moist, sclera anicteric and not injected, tongue midline, Mallampati 2 Neck: Supple without pain on palpation, mass or bruit Cardiac: Regular rate and rhythm without rub, gallop, yesterday I thought I heard a murmur, but I had Dr. Cantu listen and she was not sure that she could appreciate a murmur Chest: Clear to auscultation bilaterally Abdomen: Soft, nontender, no longer distended, normal bowel sounds, no hepatomegaly, no splenomegaly Genitourinary: Deferred Rectal: Deferred Extremities: No gross neurovascular problem, no clubbing, cyanosis or edema Gait: Not evaluated as I did not get the patient out of bed. Psychiatric: Alert and oriented to person place and time, asks and answers questions appropriately, mood and affect appropriate Impression/Plan Problem List (1) Small bowel obstruction: (2) Benign essential hypertension: (3) Diabetes mellitus: Qualifiers: Chronic kidney disease stage: stage 2 (GFR 60-89) Diabetes mellitus complication detail: with chronic kidney disease Diabetes mellitus complication status: with kidney complications Diabetes mellitus custodial insulin use: without long term care social worker use Diabetes mellitus type: type 2 Qualified Code(s): E11.22 - Type 2 diabetes mellitus with diabetic chronic kidney disease; N18.2 - Chronic kidney disease, stage 2 (mild) (4) CKD stage 3 secondary to diabetes: Plan Hospital day 2 status post admission for a small bowel obstruction Upon instructions the patient has been changed to inpatient. 1) FEN Started on clear liquid diet with regular diet for breakfast. 2) Abdomen Bowel function has returned and abdomen is soft and non-tender. DC NG tube. 3) Endocrine Diabetic care per my internal medicine colleaguesmuch appreciated. Now can place back on normal oral meds. 4) Cardiac Treatment of hypertension per my internal medicine colleaguesmuch appreciated. Now can place back on normal oral meds. 5) Pain Resolved and pain medication not required. 6) Activity Ambulate is much as possible. All of this was discussed with the patient vocalized understanding. As long as patient continues to improve expect discharge in AM. CPT 33722
--- NOTE | 2025-03-14 13:11 | PROVIDER PROGRESS NOTE ---
Subjective Prog Note Date Prog Note Date: 03/14/25 Subjective Pt reports feeling: No change Current Medications Current Medications Current Medications: Current Medications Generic Name Dose Route Start Last Admin Trade Name Fernando PRN Reason Stop Dose Admin Clonidine HCl 1 patch 03/13/25 11:00 03/13/25 11:35 Clonidine 0.1 Mg Patch TOP 1 patch Q7D LUKAS Administration Hydralazine HCl 10 mg 03/12/25 22:29 Hydralazine Inj 20 Mg/Ml Vial IVP Q6H PRN Highblood pressure Hydromorphone HCl 0.5 mg 03/13/25 04:16 03/13/25 07:57 Hydromorphone 0.5 Mg/0.5 Ml Syringe IVP 0.5 mg Q1H PRN Administration Severe Pain (Level 7-10) Potassium Chloride/Sodium Chloride 1,000 mls @ 100 mls/hr 03/12/25 23:15 03/14/25 04:31 Normal Saline 0.9% W/20 Meq Kcl IV 100 mls/hr .Q10H LUKAS Administration Insulin Human Regular 1 - 5 unit 03/13/25 00:00 03/14/25 11:51 Insulin Regular, Human 300 Unit/3 Ml Pen SUBQ Not Given Q6HR COUNTS INCLUDE 234 BEDS AT THE [facility] Protocol Ondansetron HCl 4 mg 03/12/25 23:15 03/13/25 04:31 Ondansetron 4 Mg/2 Ml Vial IVP 4 mg Q6HR PRN Administration Nausea / Vomiting Sodium Chloride 10 ml 03/12/25 23:15 Sodium Chloride Flush 0.9% 10 Ml Syringe IVP PRN PRN NEEDED PER PROVIDER ORDERS Sodium Chloride 10 ml 03/13/25 01:00 03/14/25 08:14 Sodium Chloride Flush 0.9% 10 Ml Syringe IVP Not Given 0100,0900,1700 COUNTS INCLUDE 234 BEDS AT THE [facility] Objective Vital Signs/Intake & Output Reviewed Vital Signs: Yes Vital Signs: Vital Signs x48h Temp Pulse Resp BP Pulse Ox 03/14/25 08:18 98.2 F 80 12 149/72 H 93 03/14/25 05:34 98.2 F 77 16 144/71 H 92 Intake & Output: Intake & Output 03/11/25 03/12/25 03/13/25 03/14/25 23:59 23:59 23:59 23:59 Intake Total 1000 / 1000 1904 / 1904 1072 / 1072 Output Total 950 / 950 785 / 785 Balance 999 / 999 954 / 954 287 / 287 Weight (kg) 144 lb 6.444 oz Objective General Appearance: positive No acute distress and Alert Respiratory: positive No respiratory distress and Breath sounds nml Cardiovascular: positive Regular rate & rhythm Peripheral Pulses: 2+: Radial (R), 2+: Radial (L), 2+: Dorsalis pedis (R) and 2+: Dorsalis pedis (L) Abdomen: positive Tenderness (LLQ, LUQ, and epigastric), Guarding (LLQ, LUQ, and epigastric) and Abnml bowel sounds (slightly decreased) Back: positive Nml inspection Skin: positive Color nml Extremities: positive No pedal edema Neurologic/Psychiatric: positive Oriented x3 Lab Results 03/14/25 04:41 03/14/25 04:41 Other Labs: Lab Results x24hrs 03/14/25 03/14/25 03/14/25 Range/Units 11:30 06:29 05:33 WBC (4.8-10.8) x10^3/uL RBC (4.70-6.10) 10^6/uL Hgb (14.0-18.0) g/dL Hct (42.0-52.0) % MCV (80.0-94.0) fL MCH (27.0-31.0) pg MCHC (32.0-36.0) g/dL RDW (12.0-15.0) % Plt Count (130-450) 10^3/uL MPV (7.4-11.4) fL Neut # (Auto) (1.5-6.6) 10^3/uL Lymph # (Auto) (1.5-3.5) 10^3/uL [place] # (Auto) (0.0-1.0) 10^3/uL Eos # (Auto) (0.0-0.7) 10^3/uL Baso # (Auto) (0.0-0.1) 10^3/uL Absolute Nucleated RBC x10^3/uL Nucleated RBC % /100WBC Sodium (135-145) mmol/L Potassium (3.5-4.5) mmol/L Chloride (101-111) mmol/L Carbon Dioxide (21-32) mmol/L Anion Gap (6-13) BUN (6-20) mg/dL Creatinine (0.6-1.3) mg/dL Estimated GFR (MDRD) (>89) Glucose (74-104) mg/dL POC Whole Bld Glucose 73 76 70 (70-100) mg/dL Calcium (8.5-10.3) mg/dL Total Bilirubin (0.2-1.0) mg/dL AST (10-42) IU/L ALT (10-60) IU/L Alkaline Phosphatase (42-121) IU/L Total Protein (6.4-8.9) g/dL Albumin (3.2-5.5) g/dL Globulin (2.1-4.2) g/dL Albumin/Globulin Ratio (1.0-2.2) 03/14/25 03/14/25 03/13/25 Range/Units 04:41 00:41 23:45 WBC 7.5 (4.8-10.8) x10^3/uL RBC 4.51 L (4.70-6.10) 10^6/uL Hgb 14.0 (14.0-18.0) g/dL Hct 43.3 (42.0-52.0) % MCV 96.0 H (80.0-94.0) fL MCH 31.0 (27.0-31.0) pg MCHC 32.3 (32.0-36.0) g/dL RDW 12.3 (12.0-15.0) % Plt Count 181 (130-450) 10^3/uL MPV 9.9 (7.4-11.4) fL Neut # (Auto) 4.6 (1.5-6.6) 10^3/uL Lymph # (Auto) 1.9 (1.5-3.5) 10^3/uL [place] # (Auto) 0.6 (0.0-1.0) 10^3/uL Eos # (Auto) 0.3 (0.0-0.7) 10^3/uL Baso # (Auto) 0.1 (0.0-0.1) 10^3/uL Absolute Nucleated RBC 0.00 x10^3/uL Nucleated RBC % 0.0 /100WBC Sodium 140 (135-145) mmol/L Potassium 4.3 (3.5-4.5) mmol/L Chloride 109 (101-111) mmol/L Carbon Dioxide 25 (21-32) mmol/L Anion Gap 6.0 (6-13) BUN 17 (6-20) mg/dL Creatinine 1.2 (0.6-1.3) mg/dL Estimated GFR (MDRD) 58 L (>89) Glucose 76 (74-104) mg/dL POC Whole Bld Glucose 86 75 (70-100) mg/dL Calcium 8.2 L (8.5-10.3) mg/dL Total Bilirubin 0.7 (0.2-1.0) mg/dL AST 14 (10-42) IU/L ALT 11 (10-60) IU/L Alkaline Phosphatase 53 (42-121) IU/L Total Protein 6.9 (6.4-8.9) g/dL Albumin 3.9 (3.2-5.5) g/dL Globulin 3.0 (2.1-4.2) g/dL Albumin/Globulin Ratio 1.3 (1.0-2.2) 03/13/25 Range/Units 18:01 WBC (4.8-10.8) x10^3/uL RBC (4.70-6.10) 10^6/uL Hgb (14.0-18.0) g/dL Hct (42.0-52.0) % MCV (80.0-94.0) fL MCH (27.0-31.0) pg MCHC (32.0-36.0) g/dL RDW (12.0-15.0) % Plt Count (130-450) 10^3/uL MPV (7.4-11.4) fL Neut # (Auto) (1.5-6.6) 10^3/uL Lymph # (Auto) (1.5-3.5) 10^3/uL [place] # (Auto) (0.0-1.0) 10^3/uL Eos # (Auto) (0.0-0.7) 10^3/uL Baso # (Auto) (0.0-0.1) 10^3/uL Absolute Nucleated RBC x10^3/uL Nucleated RBC % /100WBC Sodium (135-145) mmol/L Potassium (3.5-4.5) mmol/L Chloride (101-111) mmol/L Carbon Dioxide (21-32) mmol/L Anion Gap (6-13) BUN (6-20) mg/dL Creatinine (0.6-1.3) mg/dL Estimated GFR (MDRD) (>89) Glucose (74-104) mg/dL POC Whole Bld Glucose 103 (70-100) mg/dL Calcium (8.5-10.3) mg/dL Total Bilirubin (0.2-1.0) mg/dL AST (10-42) IU/L ALT (10-60) IU/L Alkaline Phosphatase (42-121) IU/L Total Protein (6.4-8.9) g/dL Albumin (3.2-5.5) g/dL Globulin (2.1-4.2) g/dL Albumin/Globulin Ratio (1.0-2.2) Diagnostic Imaging Diagnostic Imaging Results: positive Final report reviewed Assessment/Plan Problem List (1) Small bowel obstruction: Impression: Managed by surgery. Pt will likely get NG tube to decompress. He is currently on 100 mL/hr fluids. Hydromorphone 0.5 mg IV q1hr PRN for pain and ondansetron 4 mg IV q6hrs PRN for nausea. 03/14: NGT DC'd. Advance to clear liquid per surgery (2) Benign essential hypertension: Impression: 03/14: Patient is now cleared for oral intake. Will restart home BP regimen (3) Diabetes mellitus: Impression: His DM2 is well managed at home with glipizide, empagliflozin, and metformin. Pt NPO. Glucose will be managed with insulin. - sliding scale insulin SUBQ q6hrs Qualifiers: Chronic kidney disease stage: stage 2 (GFR 60-89) Diabetes mellitus complication detail: with chronic kidney disease Diabetes mellitus complication status: with kidney complications Diabetes mellitus oysterman insulin use: w [facility] oysterman use Diabetes mellitus type: type 2 Qualified Code(s): E11.22 - Type 2 diabetes mellitus with diabetic chronic kidney disease; N18.2 - Chronic kidney disease, stage 2 (mild) (4) CKD stage 3 secondary to diabetes: Impression: - monitor creatinine values
[2025-03-14] MEDS: INSULIN LISPRO 300 UNIT/3 ML PEN SUBQ SCH (18:13)
[2025-03-15 07:50] VITALS: O2SAT 95
[2025-03-15] MEDS: LOSARTAN 50 MG TABLET PO SCH (08:07)
--- NOTE | 2025-03-15 09:10 | Discharge Summary ---
"Discharge Summary Admit Date: 03/12/25 Discharge Date: 03/15/25 Discharging Provider: Dr. Brown Jefferson Primary Care Provider: Frances Reilly PA-C Code Status: Attempt Resuscitation DIAGNOSES Admission Diagnoses: Small bowel obstruction Discharge Diagnoses with Status of Each Condition: Small bowel obstruction resolved HPI History of Present Illness: Patient is a very pleasant 79-year-old male who presented on the 12 March with a small bowel obstruction. The presentation was primarily that of abdominal pain with 1 episode of nausea and vomiting. Radiographic studies show the transition point to be in the mid jejunum. There was no evidence of perforation or acute infection and as such I opted to treat the patient conservatively with placement of a nasogastric tube and IV fluids. Laboratory values showed dehydration upon admission which resolved with IV fluids. The patient subsequently resolved his obstruction yesterday with the passage of a bowel movement and flatus. The nasogastric tube has subsequently been removed, the patient tolerated clear liquids and this morning a general diet, and is looking forward to being discharged home. CONSULTS | PROCEDURES Consultations: General Surgery (me) Procedures: None HOSPITAL COURSE Hospital Course: See above for hospital course ALLERGIES Allergies Allergy/AdvReac Type Severity Reaction Status Date / Time spironolactone Allergy Severe Unknown Verified 03/12/25 19:31 hydrochlorothiazide Allergy Unknown Verified 03/12/25 19:31 lisinopril Allergy Unknown Verified 03/12/25 19:31 lovastatin AdvReac Severe liver Verified 03/12/25 19:31 enzymes MEDICATIONS Ambulatory Orders Medication Instructions Recorded Confirmed blood sugar diagnostic (Accutrend 07/15/24 03/12/25 Glucose test strips) blood-glucose meter 07/15/24 03/12/25 amlodipine 10 mg tablet (Norvasc) 10 mg PO DAILY #90 t abs 02/02/25 03/12/25 carvedilol 25 mg tablet 25 mg PO BID #180 tabs 02/0203/12/25 chlorthalidone 25 mg tablet 12.5 mg (1/2 x 25 mg) PO Q DAY #45 02/02/25 03/12/25 tabs clonidine HCl 0.1 mg tablet 0.1 mg PO .qhs #90 tabs 03/12/25 glipizide 10 mg tablet 10 mg PO BID #90 tabs 03/12/25 hydralazine 100 mg tablet See Rx Instructions .Route 0 02/02/25 03/12/25 .COMPLEX #270 tabs metformin 500 mg tablet 500 mg PO BID #180 tabs 01/1703/12/25 prazosin 1 mg capsule 4 mg (4 x 1 mg) PO QPM #360 caps 02/02/25 03/12/25 telmisartan 80 mg tablet (Micardis) 80 mg PO DAILY #90 tabs 02/02/25 03/12/25 empagliflozin 10 mg tablet 10 mg PO DAILY 03/12/25 (Jardiance) furosemide 20 mg tablet 20 mg PO DAILY 03/12/2502/17 PHYSICAL EXAM AT DISCHARGE Vital Signs: Vital Signs x48h Temp Pulse Resp BP Pulse Ox 03/15/25 07:49 36.8 C 70 18 135/63 H 95 03/15/25 04:51 37.0 C 65 16 133/61 H 96 General: 79-year old male, appears stated age, well developed, well nourished HEENT: Normocephalic, atraumatic, extraocular movement intact, mucous membranes pink and moist, sclera anicteric and not injected, tongue midline Neck: I did not evaluate Cardiac: Regular rate and rhythm without rub, gallop, or murmur Chest: Clear to auscultation bilaterally Abdomen: Soft, nontender, normoactive bowel sounds, no hepatomegaly, no splenomegaly, no distention Genitourinary: Deferred Rectal: Deferred Extremities: No gross neurovascular problem, no clubbing, cyanosis or edema Gait: I did not evaluate as I did not have the patient get out of bed Psychiatric: Alert and oriented to person place and time, asks and answers questions appropriately, mood and affect appropriate LABS 03/14/25 04:41 03/14/25 04:41 FOLLOW UP Follow Up: Dr. Brown Jefferson in 1 to 2 weeks only as necessary TIME SPENT Time Spent in Discharge (Minutes): 45 Discharge Plan Discharge Patient Disposition: 01 Home, Self Care Condition: Stable Medically Cleared Date:: 03/15/25 Prescriptions: Continued (DME) Accutrend Glucose test strips Strip See Rx Instructions .ROUTE Rx Instructions: As directed (DME) blood-glucose meter Kit See Rx Instructions .ROUTE Rx Instructions: As directed EVERY MORNING Jardiance 10 mg tablet 10 mg PO DAILY Patient Comments: TAKE ONE TABLET BY MOUTH ONE TIME DAILY furosemide 20 mg tablet 20 mg PO DAILY Patient Comments: TAKE ONE TABLET BY MOUTH ONE TIME DAILY amlodipine [Norvasc] 10 mg tablet 10 mg PO DAILY Qty: 90 3RF carvedilol 25 mg tablet 25 mg PO BID Qty: 180 3RF Rx Instructions: must administer with a meal/food chlorthalidone 25 mg tablet 12.5 mg PO QDAY Qty: 45 3RF clonidine HCl 0.1 mg tablet 0.1 mg PO .qhs Qty: 90 3RF prazosin 1 mg capsule 4 mg PO QPM Qty: 360 3RF telmisartan [Micardis] 80 mg tablet 80 mg PO DAILY Qty: 90 3RF metformin 500 mg tablet 500 mg PO BID Qty: 180 3RF hydralazine 100 mg tablet See Rx Instructions .ROUTE .COMPLEX Qty: 270 3RF Dose Instruction: take 1 tablet by mouth three times a day Rx Instructions: take 1 tablet by mouth three times a day glipizide 10 mg tablet 10 mg PO BID Qty: 90 3RF Activity Restrictions: No Restrictions Activity Restrictions/Additional Instructions: The patient can have a general diet. The patient can shower, hot tub, and swim. The patient can walk, climb stairs, and run. Patient should restart his normal medications today. Contact me with any surgical questions and/or concerns. Diet: Regular Assessment: The small bowel obstruction has resolved with conservative management but whenever caused it can return. I do recommend the patient be well-hydrated to help prevent something like this from occurring in the future. Print Language: Croatian Patient Instructions: Small Bowel Obstruction Stand Alone Forms: PCP List Follow-up Care: Frances Reilly PA-C [Primary Care Provider, Family Practice] Vitals documented within 30 minutes of discharge?: Yes"
[2025-03-15 12:51] VITALS: BP 130/61; TEMP 97.9
== END 2025-03-15 12:35 | disposition home or self-care (01) | DRG 390 ==
LOC: ED 19:18 → MS2 19:18
PROVIDERS: ADMIT Surgery; ATTEND Surgery
DX: E11.22 Type 2 diabetes mellitus with diabetic chronic kidney disease; Z79.84 Long term (current) use of oral hypoglycemic drugs; N40.0 Benign prostatic hyperplasia without lower urinary tract symptoms; N18.30 Chronic kidney disease, stage 3 unspecified; D72.829 Elevated white blood cell count, unspecified; E87.6 Hypokalemia; K56.609 Unspecified intestinal obstruction, unspecified as to partial versus complete obstruction; I12.9 Hypertensive chronic kidney disease with stage 1 through stage 4 chronic kidney disease, or unspecified chronic kidney disease; K21.9 Gastro-esophageal reflux disease without esophagitis; N17.9 Acute kidney failure, unspecified; E86.0 Dehydration; E78.5 Hyperlipidemia, unspecified; Z79.899 Other long term (current) drug therapy